=== PATIENT | male | born 1955 | race Two or more races ===

== ENCOUNTER 2017-12-28 15:40 | Inpatient (IN) | payer BC, MEDICAID ==
[~2017-12-28] VITALS: Ht 167.6 cm; Wt 94.8 kg
[2017-12-28 15:48] VITALS: BP 123/67
--- NOTE | 2017-12-28 16:00 | NUR ---
PT AMBULATED TO ER BED 11
[2017-12-28] MEDS ORDERED: IBUP-1842 PO (16:06)
[2017-12-28] MEDS ORDERED: TERA5CAP8 PO (16:06)
[2017-12-28] MEDS ORDERED: METF1000 PO (16:06)
[2017-12-28] MEDS ORDERED: GLIP10TE PO (16:06)
[2017-12-28] MEDS ORDERED: METF1TAB34 PO (16:06)
[2017-12-28] MEDS ORDERED: GABA400C PO (16:06)
[2017-12-28] MEDS ORDERED: HYDR25CA1 PO (16:06)
[2017-12-28] MEDS ORDERED: LISI-420 PO (16:06)
[2017-12-28] MEDS ORDERED: OMEP20TC12 PO (16:06)
--- NOTE | 2017-12-28 16:10 | NUR ---
PATIENT PRESENTS TO ED WITH COMPALINTS OF ABDOMINAL PAIN AND SHORTNESS OF BREATH X 4 DAYS. PATIENT STATES PAIN HAS BEEN INCREASING AND SOB IS WORSENING. ABDOMINAL GIRTH APPEARS TO BE INCREASING ACCORDING TO PATIENT. DENIES N/V/D; SKIN IS PINK/WARM/DRY; AAOX4 WITH EVEN AND STEADY GAIT; LUNGS CLEAR BL; HR EVEN AND REGULAR; PT DENIES ANY FEVER, CP, SOB, OR COUGH AT THIS TIME; PATIENT STATES PAIN OF 7/10 AT THIS TIME; VSS; PATIENT POSITIONED FOR COMFORT; HOB ELEVATED; BEDRAILS UP X1; BED DOWN. ER MD MADE AWARE OF PT STATUS.
[2017-12-28] MEDS ORDERED: NACL 0.9% 1,000 ML IV ONE (17:56)
[2017-12-28] MEDS ORDERED: MORPHINE SULFATE 2 MG/ML SYR IVP ONE (18:00)
[2017-12-28] MEDS ORDERED: ONDANSETRON 4 MG/2 ML VIAL IVP ONE (18:00)
[2017-12-28] MEDS ORDERED: metroNIDAZOLE 500 MG/NS PREMIX 100 ML IV ONE (18:00)
[2017-12-28 18:39] LABS: APPEARANCE,URINE SL CLOUDY (CLEAR); BILIRUBIN,URINE NEGATIVE (NEGATIVE); BLOOD, URINE 3+ (NEGATIVE); COLOR,URINE YELLOW (YELLOW); LEUKOCYTE ESTERASE ,URINE 2+ (NEGATIVE); NITRITE, URINE NEGATIVE (NEGATIVE); PH,URINE 5.5 (5.0-9.0); UGLUCOSE 1+ (NEGATIVE)
[2017-12-28 18:40] LABS: BASOPHILS % (AUTO) 0.5 % (0.0-2.0); EOSINOPHILS # (AUTO) 0.1 K/uL (0-0.4); EOSINOPHILS % (AUTO) 0.7 % (0.0-4.0); HEMATOCRIT 35.5 % (36-52); HEMOGLOBIN 11.8 g/dL (12.0-18.0); LYMPHOCYTES # (AUTO) 0.5 K/uL (2.0-11.5); LYMPHOCYTES % (AUTO) 5.6 % (20.5-51.1); MEAN CORPUSCULAR HEMOGLOBIN 31 pg (27-31); MEAN CORPUSCULAR HGB CONC 33 g/dL (33-37); MEAN CORPUSCULAR VOLUME 93.9 fL (80-94); MONOCYTES # (AUTO) 0.6 K/uL (0.8-1.0); MONOCYTES % (AUTO) 7.2 % (1.7-9.3); NEUTROPHILS # (AUTO) 7.2 K/uL (1.8-7.7); PLATELET COUNT (AUTO) 195 K/uL (140-450); RED BLOOD CELL COUNT(AUTO) 3.78 MIL/uL (4.20-6.10); WHITE BLOOD COUNT (AUTO) 8.4 K/uL (4.8-10.8)
[2017-12-28 18:43] LABS: ANION GAP 14.7 (8-16); CARBON DIOXIDE 23.4 mmol/L (21-32); CREATININE 2.2 mg/dL (0.7-1.3); POTASSIUM 5.1 mmol/L (3.5-5.1)
[2017-12-28 18:49] LABS: ALBUMIN 2.7 g/dL (3.4-5.0); TOTAL BILIRUBIN 1.7 mg/dL (0.0-1.0)
[2017-12-28 18:55] LABS: RBC,URINE 0-5 (RARE) /HPF (0-5); WBC,URINE 20-60 /HPF (0-5)
[2017-12-28 18:56] LABS: URINE AMORPHOUS URATE 1+ /HPF (None Seen)
--- NOTE | 2017-12-28 19:04 | NUR ---
PT TAKEN TO CT
--- NOTE | 2017-12-28 19:19 | NUR ---
REPORT RECEIVED FROM CASSANDRA CRAWLEY
[2017-12-28] MEDS ORDERED: cefTRIAXone 1,000 MG VIAL ONE (20:50)
[2017-12-28] MEDS ORDERED: DOCUSATE SODIUM 100 MG GELCAP PO PRN (21:00)
[2017-12-28] MEDS ORDERED: ACETAMINOPHEN 325 MG TAB PO PRN (21:00)
--- NOTE | 2017-12-28 21:17 | NUR ---
Pt transferred to Tele viaBED WITH ETIENNE BOWEN AND EMT KASEY .
--- NOTE | 2017-12-28 21:20 | NUR ---
PT ARRIVED AT UNIT VIA GURNEY, PT AMBULATED TO BED, THEN WENT TO RESTROOM TO URINATE, PT TOLERATED WELL, WENT BACK TO BED, RECEIVED REPORT FROM ER NURSE, PT STABLE, NO DISTRESS NOTED, IV TO R AC 20G RUNNING NS, PATENT, INTACT, INFUSING WELL, PT ON ROOM AIR, NO SOB, PT STATED HAVING PAIN /10, WILL MEDICATE, PT AAO X4, ORIENT PT TO ROOM, CALL LIGHT AND PHONE, INITIAL ASSESSMENT DONE, ALL SAFETY PRECAUTION MET, WILL CONTINUE TO MONITOR.
[2017-12-28 21:30] VITALS: BP 146/71
[2017-12-28 21:42] LABS: BARBITURATE, URINE NEG. ng/ml (NEG <=200); BENZODIAZEPINE, URINE NEG. ng/mL (NEG <=200); CANNABINOID, URINE NEG. ng/mL (NEG <=50); COCAINE, URINE NEG. ng/mL (NEG <=300); OPIATE, URINE NEG. ng/mL (NEG <=2000); PHENCYCLIDINE SCREEN,URINE NEG. ng/mL (NEG <=25)
[2017-12-28 21:44] LABS: CHOL/HDL RATIO 5.6 (1-4.5); FREE T4 (FREE THYROXINE) 1.36 ng/dL (0.76-1.46); MAGNESIUM 1.8 mg/dL (1.8-2.4); PHOSPHORUS 3.4 mg/dL (2.5-4.9); THYROID STIMULATING HORMONE 3.06 uIU/mL (0.34-3.74)
--- NOTE | 2017-12-28 21:52 | NUR ---
TYLENOL GIVEN PER MD ORDER, PT TEMP 102, WILL RECHECKED PT TEMP IN ONE HOUR
[2017-12-28] MEDS: NACL 0.9% 1,000 ML IV SCH (21:53)
[2017-12-28] MEDS ORDERED: PIOG15TA24 PO (22:02)
[2017-12-28] MEDS ORDERED: hydrOXYzine PAMOATE 25 MG CAP PO PRN (22:05)
[2017-12-28] MEDS: HYDROcodone/APAP 7.5/325 MG 1 TAB PO PRN (22:21)
--- NOTE | 2017-12-28 22:21 | NUR ---
PAIN MEDICATION GIVEN, PT TOLERATED WELL, NO DISTRESS NOTED, CALL LIGHT WITHIN REACH, WILL CONTINUE TO MONITOR.
--- NOTE | 2017-12-28 22:53 | NUR ---
RECHECKED PT TEMP, CURRENTLY AT 99.8, PT STABLE, NO DISTRESS NOTED, CALL LIGHT WITHIN REACH, WILL CONTINUE TO MONITOR.
[2017-12-29] VITALS: BP 120/60
--- NOTE | 2017-12-29 00:10 | NUR ---
CHECKED ON PT, PT SLEEPING, EASY TO AROUSE, V/S TAKEN, WNL, PT STATE PAIN TOLERABLE AT THIS MOMENT, NO DISTRESS NOTED, CALL LIGHT WITHIN REACH, WILL CONTINUE TO MONITOR.
[2017-12-29] MEDS ORDERED: DEXTROSE 50% 50 ML SYR IVP PRN (01:05)
--- NOTE | 2017-12-29 02:10 | NUR ---
CHECKED ON PT, PT SLEEPING, NO DISTRESS NOTED, CALL LIGHT WITHIN REACH, WILL CONTINUE TO MONITOR.
[2017-12-29 02:33] VITALS: BP 120/60
--- NOTE | 2017-12-29 03:37 | NUR ---
CHECKED ON PT, PT SLEEPING, NO DISTRESS NOTED, V/S WNL, CALL LIGHT WITHIN REACH, WILL CONTINUE TO MONITOR.
[2017-12-29 04:00] VITALS: BP 112/67
[2017-12-29] MEDS: NACL 0.9% 1,000 ML IV SCH ×2 (04:42→13:20)
--- NOTE | 2017-12-29 05:55 | NUR ---
CHECKED ON PT, PT STABLE, NO DISTRESS NOTED, STATED PAIN TOLERABLE AT 2/10, CALL LIGHT WITHIN REACH, WILL CONTINUE TO MONITOR.
[2017-12-29] MEDS: BLOOD GLUCOSE MONITORING 1 DEV DEV FS SCH ×4 (06:31→21:19)
[2017-12-29] MEDS: INSULIN LISPRO SLIDING SCALE 100 UNITS/ML VIAL SUBQ PRN ×2 (06:33→13:23)
--- NOTE | 2017-12-29 06:33 | NUR ---
CHECKED PT BLOOD SUGAR 168, INSULIN PER SLIDING SCALE 2UNITS GIVEN, PT TOLERATED WELL, GLUCOTROL ORDERED NOT AVAILABLE AT [facility], WILL ENDORSE TO DAY SHIFT NURSE. PT STABLE, NO DISTRESS NOTED, CALL LIGHT WITHIN REACH, WILL CONTINUE TO MONITOR.
[2017-12-29 07:13] LABS: BASOPHILS % (AUTO) 0.2 % (0.0-2.0); EOSINOPHILS % (AUTO) 0.4 % (0.0-4.0); HEMATOCRIT 32.6 % (36-52); HEMOGLOBIN 10.9 g/dL (12.0-18.0); LYMPHOCYTES # (AUTO) 0.4 K/uL (2.0-11.5); MEAN CORPUSCULAR HEMOGLOBIN 32 pg (27-31); MEAN CORPUSCULAR HGB CONC 34 g/dL (33-37); MEAN CORPUSCULAR VOLUME 94.6 fL (80-94); MONOCYTES # (AUTO) 0.7 K/uL (0.8-1.0); MONOCYTES % (AUTO) 6.3 % (1.7-9.3); NEUTROPHILS # (AUTO) 9.9 K/uL (1.8-7.7); NEUTROPHILS % (AUTO) 89.1 % (42.2-75.2); PLATELET COUNT (AUTO) 179 K/uL (140-450); RED BLOOD CELL COUNT(AUTO) 3.45 MIL/uL (4.20-6.10); RED CELL DISTRIBUTION WIDTH 15.2 % (11.6-13.7); WHITE BLOOD COUNT (AUTO) 11.2 K/uL (4.8-10.8)
[2017-12-29] MEDS ORDERED: glipiZIDE ER 5 MG TABER PO SCH (07:30)
--- NOTE | 2017-12-29 07:30 | NUR ---
ENDORSED PT TO DAY SHIFT NURSE TINY RN, PT STABLE, NO DISTRESS NOTED, CALL LIGHT WITHIN REACH.
[2017-12-29 07:34] LABS: ANION GAP 14.8 (8-16); CARBON DIOXIDE 20.4 mmol/L (21-32); CREATININE 2.2 mg/dL (0.7-1.3); POTASSIUM 5.2 mmol/L (3.5-5.1)
[2017-12-29 07:38] LABS: MAGNESIUM 1.5 mg/dL (1.8-2.4); PHOSPHORUS 3.1 mg/dL (2.5-4.9)
--- NOTE | 2017-12-29 08:00 | NUR ---
PATIETN AWAKE AND IS LAERT AND ORIENTED, NO C/O PAIN AT THIS TIME. PATIENT IS SAUDI ARABIAN SPEAKING BUT SPEAKS ENOUGH KOREAN TO COMMUNICATE WITH THIS FOOD COUNTER ATTENDANT
[2017-12-29 08:27] VITALS: BP 125/71
--- NOTE | 2017-12-29 08:43 | NUR ---
PATIENT HAS BEEN SCREENED AND CATEGORIZED HIGH NUTRITION RISK. PATIENT WILL BE SEEN WITHIN 1-2 DAYS OF ADMISSION. 12/29/17 12/30/[address]
[2017-12-29] MEDS: LACTOBACILLUS RHAMNOSUS GG 1 EACH CAP PO SCH (08:52)
[2017-12-29] MEDS: GABAPENTIN 100 MG CAP PO SCH ×3 (08:52→18:15)
[2017-12-29] MEDS: glipiZIDE 5 MG TAB PO SCH ×2 (09:08→17:45)
--- NOTE | 2017-12-29 12:00 | NUR ---
PATIENT RESTING QUIETLY, ADMITS TO HAVING SOME ABDOMINAL DISCOMFORT BUT NOT WANTING ANY PAIN MEDICATION
[2017-12-29 12:30] VITALS: BP 121/58
--- NOTE | 2017-12-29 13:59 | NUR ---
12/29/17 RD INITIAL ASSESSMENT COMPLETED PLEASE REFER TO NUTRITION ASSESSMENT UNDER CARE ACTIVITY FOR ESTIMATED NUTRITIONAL NEEDS. 1. CONTINUE CLEAR LIQUIDS MEDICALLY APPROPRIATE 2. RECOMMEND RENAL AND CCHO 60 GM DIET 3. PROVIDE NUTRITION EDUCATION ON RENAL AND DIABETES 4. RD TO FOLLOW-UP 3-5 DAYS, MODERATE RISK MINNA TAMAYO RD
--- NOTE | 2017-12-29 16:00 | NUR ---
PATIENT CONTINUES TO REST WELL. NO EVIDENCE OF DISTRESS NOTED.
--- NOTE | 2017-12-29 16:25 | NUR ---
RECEIVED A CALL THIS AM FROM GEETHA. SHE SAID TO FAX REVIEW TO [phone] PHONE [phone]
--- NOTE | 2017-12-29 16:29 | NUR ---
FAXED INITIAL REVIEW TO [phone] PHONE GEETHA [phone]
[2017-12-29 18:02] VITALS: BP 125/70
[2017-12-29] MEDS ORDERED: MAG SULF 2000 MG/WATER PREMIX 100 ML IV SCH (19:30)
--- NOTE | 2017-12-29 19:36 | NUR ---
REPORTED OFF TO MELODY GUIDO RN
--- NOTE | 2017-12-29 19:37 | NUR ---
RECEIVED PATIENT ON THE SIDE OF THE BED WITH FAMILY MEMBERS. PATIENT WAS COOPERATIVE AND DISCUSS THE PLAN OF CARE AND VERBALIZED UNDERSTANDING. CALL LIGHT WITHIN REACH.ALL NEEDS ATTENDED. WILL CONTINUE TO MONITOR.
[2017-12-29] MEDS: TERAZOSIN 5 MG CAP PO SCH (21:00)
[2017-12-29] MEDS: FINASTERIDE 5 MG TAB PO SCH (21:08)
--- NOTE | 2017-12-29 21:35 | NUR ---
SEEN PATIENT ASLEEP ON BED IN COMFORTABLE POSITION. CALL LIGHTS WITHIN REACH. BED IN LOW POSITION. WILL CONTINUE TO MONITOR.
--- NOTE | 2017-12-29 23:20 | NUR ---
SEEN PATIENT ASLEEP ON BED. CALL LIGHT WITHIN REACH. NO S/S OF DISTRESS NOTED. WILL CONTINUE TO MONITOR.
[2017-12-30] VITALS: BP 123/63
--- NOTE | 2017-12-30 01:35 | NUR ---
SEEN PATIENT ASLEEP ON BED BUT EASILY AROUSABLE. BED IN LOW POSITION .CALL LIGHT WITHIN REACH. NO S/S OF DISTRESS NOTED. WILL CONTINUE TO MONITOR.
[2017-12-30] MEDS: NACL 0.9% 1,000 ML IV SCH (02:04)
--- NOTE | 2017-12-30 03:37 | NUR ---
SEEN PATIENT ASLEEP ON BED. CALL LIGHT WITHIN REACH. BED IN LOW POSITION. WILL CONTINUE TO MONITOR.
[2017-12-30 04:00] VITALS: BP 113/61
--- NOTE | 2017-12-30 05:16 | NUR ---
SEEN PATIENT ASLEEP ON BED IN COMFORTABLE POSITION. BED IN LOW POSITION. CALL LIGHT WITHIN REACH. NO S/S OF DISTRESS NOTED AT THIS.
[2017-12-30 06:32] LABS: BASOPHILS % (AUTO) 0.4 % (0.0-2.0); EOSINOPHILS # (AUTO) 0.1 K/uL (0-0.4); EOSINOPHILS % (AUTO) 1.1 % (0.0-4.0); HEMATOCRIT 29.7 % (36-52); HEMOGLOBIN 10.1 g/dL (12.0-18.0); LYMPHOCYTES # (AUTO) 0.5 K/uL (2.0-11.5); LYMPHOCYTES % (AUTO) 7.3 % (20.5-51.1); MEAN CORPUSCULAR HEMOGLOBIN 32 pg (27-31); MEAN CORPUSCULAR HGB CONC 34 g/dL (33-37); MEAN CORPUSCULAR VOLUME 94.4 fL (80-94); MONOCYTES # (AUTO) 0.7 K/uL (0.8-1.0); MONOCYTES % (AUTO) 9.3 % (1.7-9.3); NEUTROPHILS # (AUTO) 6.1 K/uL (1.8-7.7); NEUTROPHILS % (AUTO) 81.9 % (42.2-75.2); PLATELET COUNT (AUTO) 148 K/uL (140-450); RED BLOOD CELL COUNT(AUTO) 3.15 MIL/uL (4.20-6.10); RED CELL DISTRIBUTION WIDTH 14.7 % (11.6-13.7); WHITE BLOOD COUNT (AUTO) 7.4 K/uL (4.8-10.8)
[2017-12-30 06:32] LABS: ANION GAP 12.6 (8-16); CARBON DIOXIDE 21.3 mmol/L (21-32); POTASSIUM 4.9 mmol/L (3.5-5.1)
[2017-12-30] MEDS: BLOOD GLUCOSE MONITORING 1 DEV DEV FS SCH ×4 (06:33→20:34)
[2017-12-30] MEDS: glipiZIDE 5 MG TAB PO SCH ×2 (06:34→17:04)
[2017-12-30 06:42] LABS: MAGNESIUM 1.8 mg/dL (1.8-2.4); PHOSPHORUS 3.5 mg/dL (2.5-4.9)
--- NOTE | 2017-12-30 07:20 | NUR ---
ENDORSEMENT GIVEN TO AM SHIFT FOR CONTINUITY IF CARE.CALL LIGHTS WITHIN REACH. PATIENT IN STABLE CONDITION.
--- NOTE | 2017-12-30 07:21 | NUR ---
RECEIVED REPORT FROM SOFTWARE SUPPORT ENGINEER NURSE AT BEDSIDE. PT IS A/O X4. IV IN L AC 20G WITH NS AT 100ML/HR. SKIN IS INTACT. NO SIGNS OF DISTRESS. CALL LIGHT WITHIN REACH . UPDATED BOARD. WILL CONTINUE TO MONITOR.
[2017-12-30 08:00] VITALS: BP 109/60
[2017-12-30 08:16] LABS: T4 (THYROXINE) 7.1 ug/dL (4.5-12.0)
[2017-12-30] MEDS: GABAPENTIN 100 MG CAP PO SCH ×3 (09:14→17:04)
[2017-12-30] MEDS: LACTOBACILLUS RHAMNOSUS GG 1 EACH CAP PO SCH (09:14)
--- NOTE | 2017-12-30 09:22 | NUR ---
ADMINISTERED MORNING MEDS TO PT. PT TOLERATED WELL. NO SIGNS OF DISTRESS. PT DOES NOT NEED ANYTHING ELSE AT THIS TIME. WILL CONTINUE TO MONITOR.
[2017-12-30] MEDS: HYDROcodone/APAP 7.5/325 MG 1 TAB PO PRN (10:00)
--- NOTE | 2017-12-30 10:02 | NUR ---
ADMINISTERED PAIN MEDICATION TO PT D/T REPORTED PAIN OF 6. PT TOLERATED WELL. WILL REEVALUATE PAIN LEVEL IN 1 HR.
[2017-12-30] MEDS ORDERED: FUROSEMIDE 40 MG/4 ML VIAL IVP SCH (10:15)
--- NOTE | 2017-12-30 11:50 | NUR ---
PT IS UP AMBULATING THE HALLWAY. NO SIGNS OF DISTRESS.
[2017-12-30 12:00] VITALS: BP 113/65
[2017-12-30] MEDS: LACTULOSE 20 GM/30 ML UDC PO SCH ×3 (12:45→20:17)
[2017-12-30] MEDS: SENNA 8.6 MG TAB PO SCH ×2 (12:45→17:05)
--- NOTE | 2017-12-30 12:49 | NUR ---
ADMINISTERED AFTERNOON MEDS. PT TOLERATED WELL. PT SIGNED CONSENT FOR THE PROCEDURES SCHEDULED TOMORROW. FAMILY IS AT BEDSIDE VISITING. WILL CONTINUE TO MONITOR.
--- NOTE | 2017-12-30 14:30 | NUR ---
PT IN BED RESTING COMFORTABLY, WATCHING TV. NO SIGNS OF DISTRESS. WILL CONTINUE TO MONITOR.
[2017-12-30] MEDS ORDERED: BOWEL EVACUANT DRINK 4,000 ML PDS PO SCH (15:00)
[2017-12-30 16:00] VITALS: BP 112/68
--- NOTE | 2017-12-30 17:10 | NUR ---
ADMINISTERED EVENING MEDS TO PT. PT TOLERATED WELL. PT HAS COMPLETED DRINKING THE BOWEL PREP DRINK. WILL CONTINUE TO MONITOR.
--- NOTE | 2017-12-30 19:10 | NUR ---
ENDORSED PT TO HOTEL MANAGER NURSE FOR CONTINUITY OF CARE. PT IN STABLE CONDITION.
--- NOTE | 2017-12-30 19:11 | NUR ---
REPORT RECEIVED FROM AM NURSE. PT IN STABLE CONDITION. INTRODUCED SELF TO PT AND FAMILY. SKIN INTACT. IV SITE PATENT AND INTACT, SL. PT VERBALIZED UNDERSTANDING OF PLAN OF CARE. PT NPO AFTER MIDNIGHT FOR PROCEDURE TOMORROW. PT AMBULATORY. BED LOCKED IN LOW POSITION. CALL REYNOSO WITHIN REACH. WILL CONTINUE TO MONITOR.
[2017-12-30 20:00] VITALS: BP 124/67
[2017-12-30] MEDS ORDERED: MAGNESIUM CITRATE 300 ML BTL PO SCH (20:00)
[2017-12-30] MEDS: FINASTERIDE 5 MG TAB PO SCH (20:16)
[2017-12-30] MEDS ORDERED: ALBUMIN HUMAN 25% 100 ML IV ONE (21:00)
[2017-12-30] MEDS: TERAZOSIN 5 MG CAP PO SCH (21:00)
--- NOTE | 2017-12-30 21:00 | NUR ---
PM MEDS GIVEN. PT TOLERATED WELL. WILL CONTINUE TO MONITOR.
--- NOTE | 2017-12-30 23:00 | NUR ---
PT ASLEEP BUT AROUSABLE. NOT IN ANY ACUTE DISTRESS. WILL CONTINUE TO MONITOR.
[2017-12-31] VITALS: BP 104/57
--- NOTE | 2017-12-31 02:00 | NUR ---
PT TURNING IN BED. PT NOT IN ANY ACUTE DISTRESS. ASKED HOW HE WAS DOING, PT STATED HE IS OK.
[2017-12-31 04:00] VITALS: BP 105/59
--- NOTE | 2017-12-31 05:00 | NUR ---
PT ASLEEP IN BED. CHEST EXPANSION IS VISIBLE. PT NOT IN ANY ACUTE DISTRESS. WILL CONTINUE TO MONITOR.
[2017-12-31] MEDS: BLOOD GLUCOSE MONITORING 1 DEV DEV FS SCH ×3 (06:27→16:33)
[2017-12-31] MEDS: glipiZIDE 5 MG TAB PO SCH ×2 (06:30→16:35)
[2017-12-31 06:50] LABS: BASOPHILS % (AUTO) 0.6 % (0.0-2.0); EOSINOPHILS # (AUTO) 0.1 K/uL (0-0.4); EOSINOPHILS % (AUTO) 1.5 % (0.0-4.0); HEMATOCRIT 30.3 % (36-52); HEMOGLOBIN 10.2 g/dL (12.0-18.0); LYMPHOCYTES # (AUTO) 0.5 K/uL (2.0-11.5); MEAN CORPUSCULAR HEMOGLOBIN 32 pg (27-31); MEAN CORPUSCULAR HGB CONC 34 g/dL (33-37); MONOCYTES # (AUTO) 0.4 K/uL (0.8-1.0); MONOCYTES % (AUTO) 8.2 % (1.7-9.3); NEUTROPHILS # (AUTO) 4.3 K/uL (1.8-7.7); PLATELET COUNT (AUTO) 155 K/uL (140-450); RED BLOOD CELL COUNT(AUTO) 3.22 MIL/uL (4.20-6.10); RED CELL DISTRIBUTION WIDTH 14.8 % (11.6-13.7); WHITE BLOOD COUNT (AUTO) 5.3 K/uL (4.8-10.8)
[2017-12-31 07:01] LABS: ANION GAP 13.2 (8-16); CARBON DIOXIDE 21.5 mmol/L (21-32); CREATININE 1.9 mg/dL (0.7-1.3); POTASSIUM 4.7 mmol/L (3.5-5.1)
--- NOTE | 2017-12-31 07:05 | NUR ---
REPORT GIVEN TO AM NURSE. PT IN STABLE CONDITION.
[2017-12-31 07:12] LABS: MAGNESIUM 1.6 mg/dL (1.8-2.4); PHOSPHORUS 4.2 mg/dL (2.5-4.9)
--- NOTE | 2017-12-31 07:15 | NUR ---
RECEIVED REPORT FROM PER ASSESSMENT NURSE NURSE ABOUT THE PT. PT IS ASLEEP LYING ON THE BED WITH AN IV LINE AT RT AC G. 20 IN SALINE LOCK, INTACT. NO IVF RUNNING AT THIS TIME. SIDE RAILS ARE UP AND CALL LIGHT WITHIN REACH. WILL CONTINUE TO MONITOR.
[2017-12-31 07:40] LABS: NEUTROPHILS % (AUTO) 80.8 % (42.2-75.2)
[2017-12-31 07:41] LABS: LYMPHOCYTES % (AUTO) 8.9 % (20.5-51.1)
[2017-12-31 08:00] VITALS: BP 122/68
--- NOTE | 2017-12-31 08:15 | NUR ---
PT IS AWAKE AND ON A SITTING POSITION ON THE BED, VITAL SIGNS TAKE AND IS STABLE. DR. CAMPBELL CALLED OVER THE PHONE AND ASKED REGARDING THE PT'S STATUS, MD INFORMED THAT PROCEDURE WILL BE DONE TODAY. SIDE RAILS ARE UP AND CALL LIGHT WITHIN REACH, NO SIGN OF DISTRESS NOTED AND WILL CONTINUE TO MONITOR.
[2017-12-31] MEDS: SENNA 8.6 MG TAB PO SCH (08:19)
[2017-12-31] MEDS: GABAPENTIN 100 MG CAP PO SCH ×3 (08:20→16:37)
[2017-12-31] MEDS: LACTOBACILLUS RHAMNOSUS GG 1 EACH CAP PO SCH (08:20)
[2017-12-31] MEDS: LACTULOSE 20 GM/30 ML UDC PO SCH (08:20)
[2017-12-31] MEDS ORDERED: MIDAZOLAM 2 MG/2 ML VIAL ONE (08:49)
[2017-12-31] MEDS ORDERED: diphenhydrAMINE 50 MG/ML VIAL ONE (08:49)
[2017-12-31] MEDS ORDERED: fentaNYL 0.05 MG/ML VIAL ONE (08:49)
--- NOTE | 2017-12-31 09:00 | NUR ---
PT IS AWAKE AND OR NURSES CAME TO GET THE PT AND BRING TO OR FOR THE EGD AND COLONOSCOPY. NO SIGN OF DISTRESS NOTED AND PT IS STABLE AT HIS TIME.
[2017-12-31] MEDS ORDERED: fentaNYL 0.05 MG/ML VIAL IVP ONE (09:45)
[2017-12-31] MEDS ORDERED: MIDAZOLAM 2 MG/2 ML VIAL IVP ONE (09:45)
--- NOTE | 2017-12-31 10:00 | NUR ---
PT CAME BACK TO THE ROOM VIA GURNEY WITH THE OR NURSES, VITAL SIGNS TAKEN AND IS STABLE. NO SIGN OF DISTRESS NOTED AND WILL CONTINUE TO MONITOR.
--- NOTE | 2017-12-31 10:05 | NUR ---
PT JUST CAME BACK FROM EGD AND COLONOSCOPY, PT HAS GASTRITIS AND DIVERTICULOSIS PER EXAMINATION. WILL MONITOR.
--- NOTE | 2017-12-31 10:10 | NUR ---
ASSISTED PT TO THE BATHROOM, PT VERBALIZED WANTING TO POOP. ASSISTED BACK TO BED AND MADE COMFORTABLE. SIDE RAILS ARE UP AND CALL LIGHT WITHIN REACH. WILL CONTINUE TO MONITOR.
[2017-12-31] MEDS ORDERED: LACTULOSE 20 GM/30 ML UDC PO SCH (10:30)
[2017-12-31] MEDS ORDERED: FUROSEMIDE 20 MG TAB PO SCH (10:30)
[2017-12-31] MEDS ORDERED: oxyCODONE/APAP 5/325 MG 1 TAB TAB PO PRN (11:00)
[2017-12-31 12:00] VITALS: BP 120/81
[2017-12-31 16:00] VITALS: BP 121/77
--- NOTE | 2017-12-31 16:02 | NUR ---
ACKNOWLEDGED A DISCHARGE ORDER PLACED BY DR. SYLVIA HASSAN FOR THE PT. WILL FACILITATE DISCHARGE PROCESS.
[2017-12-31] MEDS ORDERED: FINA5TAB5 PO (16:09)
[2017-12-31] MEDS ORDERED: GABA-636 PO (16:09)
[2017-12-31] MEDS ORDERED: SPIR50TA PO (16:09)
[2017-12-31] MEDS ORDERED: LACT10SO11 PO (16:09)
[2017-12-31] MEDS ORDERED: OMEP20TC12 PO ×2 (16:09→16:11)
[2017-12-31] MEDS ORDERED: FURO20TA8 PO (16:09)
[2017-12-31] MEDS ORDERED: GLIP5TAB13 PO (16:09)
[2017-12-31] MEDS ORDERED: TERA5CAP8 PO (16:09)
--- NOTE | 2017-12-31 16:20 | NUR ---
PT IS AWAKE AND SEATED ON THE BED, VITAL SIGNS TAKEN AND IS STABLE. NO SIGN OF DISTRESS NOTED. WILL MONITOR.
[2017-12-31] MEDS: INSULIN LISPRO SLIDING SCALE 100 UNITS/ML VIAL SUBQ PRN (16:33)
--- NOTE | 2017-12-31 16:40 | NUR ---
PT IS AWAKE AND SEATED ON THE BED, BLOOD GLUCOSE CHECK DONE AND RESULT IS 213, INSULIN GIVEN AT 4UNITS IN THE UPPER RT ARM. PT TOLERATED IT AND NO SIGN OF DISTRESS NOTED.
--- NOTE | 2017-12-31 17:40 | NUR ---
DISCHARGED PT VIA WHEELCHAIR WITH THE ACCOMPANIED BY THE DAUGHTER AND . IV LINE AND ARM BAND REMOVED. DISCHARGE INSTRUCTIONS GIVEN. PT IS STABLE AT THIS TIME.
[2018-01-01] MEDS ORDERED: LACTULOSE 20 GM/30 ML UDC PO SCH (09:00)
[2018-01-01] MEDS ORDERED: SPIRONOLACTONE 50 MG TAB PO SCH (09:00)
[2018-01-01] MEDS ORDERED: FUROSEMIDE 20 MG TAB PO SCH (09:00)
== END 2017-12-31 17:40 | disposition home or self-care (01) | DRG 720 ==
LOC: MED 15:40 → MTU 20:59
PROVIDERS: ADMIT General Practice; ATTEND General Practice
PROC: 0DB68ZX Excision of Stomach, Via Natural or Artificial Opening Endoscopic, Diagnostic (ICD-10-PCS; principal; 2017-12-31 09:00)
PROC: 0DJD8ZZ Inspection of Lower Intestinal Tract, Via Natural or Artificial Opening Endoscopic (ICD-10-PCS; 2017-12-31 09:00)
DX: A41.9 Sepsis, unspecified organism (principal); N17.0 Acute kidney failure with tubular necrosis; E43 Unspecified severe protein-calorie malnutrition; D68.59 Other primary thrombophilia; E11.22 Type 2 diabetes mellitus with diabetic chronic kidney disease; I85.10 Secondary esophageal varices without bleeding; E11.40 Type 2 diabetes mellitus with diabetic neuropathy, unspecified; E11.65 Type 2 diabetes mellitus with hyperglycemia; K70.31 Alcoholic cirrhosis of liver with ascites; E87.1 Hypo-osmolality and hyponatremia; K85.20 Alcohol induced acute pancreatitis without necrosis or infection; N39.0 Urinary tract infection, site not specified; K21.9 Gastro-esophageal reflux disease without esophagitis; F10.10 Alcohol abuse, uncomplicated; K80.20 Calculus of gallbladder without cholecystitis without obstruction; R31.9 Hematuria, unspecified; N40.0 Benign prostatic hyperplasia without lower urinary tract symptoms; N50.811 Right testicular pain; E66.9 Obesity, unspecified; D64.9 Anemia, unspecified; K57.90 Diverticulosis of intestine, part unspecified, without perforation or abscess without bleeding; N18.9 Chronic kidney disease, unspecified; I12.9 Hypertensive chronic kidney disease with stage 1 through stage 4 chronic kidney disease, or unspecified chronic kidney disease; M53.3 Sacrococcygeal disorders, not elsewhere classified; E86.1 Hypovolemia; K64.8 Other hemorrhoids; R16.2 Hepatomegaly with splenomegaly, not elsewhere classified; Z79.84 Long term (current) use of oral hypoglycemic drugs; Z79.899 Other long term (current) drug therapy; Z68.33 Body mass index [BMI] 33.0-33.9, adult
CPT/HCPCS: 36415; 71045; 76705; 76770; 76870; 80048; 80053; 80305; 81001; 82150; 82948; 83036; 83605; 83690; 83735; 83880; 84100; 84436; 84439; 84443; 84479; 84484; 85025; 85610; 85730; 86677; 87040; 87081; 87086; 87186; 93005; 93925; 93970; 96374; 96375; 99285; J0696; J1200; J1815; J1940; J2250; J2270; J2405; J3010; J3475; J3490; J7030; J7060; P9046; Q0092

== ENCOUNTER 2019-11-21 13:30 | Inpatient (IN) | payer OTHER, MEDICAID, SELFPAY ==
[~2019-11-21] VITALS: Ht 162.6 cm; Wt 92.1 kg
[~2019-11-21 13:30] MED LIST: FINA5TAB5 PO; FURO20TA8 PO; GABA-636 PO; GLIP5TAB13 PO; LACT10SO11 PO; OMEP20TC12 PO; SPIR50TA PO; TERA5CAP8 PO
[2019-11-21 13:47] VITALS: BP 150/75
--- NOTE | 2019-11-21 13:51 | NUR ---
Patient ambulated to bed 10. RN evaluating patient at bedside.
[2019-11-21] MEDS ORDERED: GLIP10TA3 PO (13:54)
[2019-11-21] MEDS ORDERED: BENA20TA PO (13:54)
[2019-11-21] MEDS ORDERED: METF1000 PO (13:54)
[2019-11-21] MEDS ORDERED: PROP20TA29 PO (13:54)
[2019-11-21] MEDS ORDERED: PIOG15TA48 PO (13:54)
[2019-11-21] MEDS ORDERED: NACL 0.9% 1,000 ML IV SCH (13:55)
[2019-11-21] MEDS ORDERED: KETOROLAC 15 MG/ML VIAL IVP ONE (13:55)
[2019-11-21] MEDS ORDERED: ONDANSETRON 4 MG/2 ML VIAL IVP ONE (13:55)
--- NOTE | 2019-11-21 14:00 | NUR ---
64 y/o m c/c upper abdominal pain, 04/02, burning, radiating to back x 1 day. per pt sudden pain, whcih has not had before, believes its due to the current cancer in liver. denies trauma. pt normal bm, and urination. pt nka. hx ca liver, tumor liver, dm. pt currently in tx for liver. rx see list. denies n/v/d. side rail x1.
--- NOTE | 2019-11-21 14:34 | NUR ---
DAUGHTER- RICHY [phone]
[2019-11-21] MEDS ORDERED: MORPHINE SULFATE 4 MG/ML SYR IVP ONE (14:35)
[2019-11-21 14:36] LABS: LYMPHOCYTES # (AUTO) 0.2 K/uL (2.0-11.5); MEAN CORPUSCULAR HEMOGLOBIN 30 pg (27-31); MEAN CORPUSCULAR HGB CONC 34 g/dL (33-37); MONOCYTES # (AUTO) 0.3 K/uL (0.8-1.0); NEUTROPHILS # (AUTO) 4.1 K/uL (1.8-7.7)
--- NOTE | 2019-11-21 14:36 | NUR ---
blood obtained ; given to lab
--- NOTE | 2019-11-21 14:37 | NUR ---
pt resting in bed, side rail x1
--- NOTE | 2019-11-21 14:44 | NUR ---
us at bedside
--- NOTE | 2019-11-21 15:02 | NUR ---
PER ACCOUNTANT TAX LITTLE , BLOOD WILL BE REDRAWN , DISREGARD CURRENT RESULTS
--- NOTE | 2019-11-21 15:03 | NUR ---
LAB AT BEDSIDE
--- NOTE | 2019-11-21 15:06 | NUR ---
DR WHITE NOTIFIED OF LAB RESULTS ; REDRAWN
[2019-11-21 15:20] LABS: ALBUMIN 3.3 g/dL (3.4-5.0); TOTAL BILIRUBIN 0.8 mg/dL (0.0-1.0)
[2019-11-21 15:20] LABS: BASOPHILS % (AUTO) 0.7 % (0.0-2.0); EOSINOPHILS % (AUTO) 0.2 % (0.0-4.0); HEMATOCRIT 32.1 % (36-52); HEMOGLOBIN 10.9 g/dL (12.0-18.0); LYMPHOCYTES % (AUTO) 3.5 % (20.5-51.1); MEAN CORPUSCULAR VOLUME 88.5 fL (80-94); MONOCYTES % (AUTO) 7.4 % (1.7-9.3); NEUTROPHILS % (AUTO) 88.2 % (42.2-75.2); PLATELET COUNT (AUTO) 58 K/uL (140-450); RED BLOOD CELL COUNT(AUTO) 3.63 MIL/uL (4.20-6.10); RED CELL DISTRIBUTION WIDTH 16.2 % (11.6-13.7); WHITE BLOOD COUNT (AUTO) 4.6 K/uL (4.8-10.8)
[2019-11-21] MEDS ORDERED: cefTRIAXone 1,000 MG VIAL ONE (15:55)
[2019-11-21] MEDS ORDERED: DEXT 5% /NACL 0.9% 1,000 ML IV SCH (16:41)
[2019-11-21] MEDS ORDERED: ONDANSETRON 4 MG/2 ML VIAL IM/IVP PRN (16:45)
[2019-11-21] MEDS ORDERED: MORPHINE SULFATE 2 MG/ML SYR IVP PRN (16:45)
[2019-11-21] MEDS ORDERED: LORazepam 2 MG/ML VIAL IM/IVP PRN (16:45)
[2019-11-21] MEDS ORDERED: DOCUSATE SODIUM 100 MG GELCAP PO PRN (16:45)
--- NOTE | 2019-11-21 16:52 | NUR ---
PT RESTING IN BED, SIDE RAIL X1
[2019-11-21 17:06] LABS: APPEARANCE,URINE HAZY (CLEAR); BILIRUBIN,URINE NEGATIVE (NEGATIVE); BLOOD, URINE NEGATIVE (NEGATIVE); COLOR,URINE YELLOW (YELLOW); LEUKOCYTE ESTERASE ,URINE 1+ (NEGATIVE); NITRITE, URINE NEGATIVE (NEGATIVE); PH,URINE 5.5 (5.0-9.0); UGLUCOSE 3+ (NEGATIVE)
[2019-11-21 17:32] LABS: BARBITURATE, URINE NEGATIVE ng/ml (NEG <=200); BENZODIAZEPINE, URINE NEGATIVE ng/mL (NEG <=200); CANNABINOID, URINE NEGATIVE ng/mL (NEG <=50); COCAINE, URINE NEGATIVE ng/mL (NEG <=300); OPIATE, URINE POSITIVE ng/mL (NEG <=2000); PHENCYCLIDINE SCREEN,URINE NEGATIVE ng/mL (NEG <=25)
[2019-11-21 17:36] LABS: PROTHROMBIN TIME 12.1 secs (10.8-13.4)
[2019-11-21] MEDS ORDERED: DEXTROSE 50% 50 ML SYR IVP PRN (17:40)
[2019-11-21] MEDS ORDERED: GLUCAGON 1 MG VIAL IVP PRN (17:40)
--- NOTE | 2019-11-21 17:55 | NUR ---
PATIENT ARRIVED VIA GURNEY. RECEIVED REPORT FROM ER NURSE. PATIENT IS ALERT AND ORIENTED X4. URDU SPEAKING. PLANS OF CARE DISCUSSED. VS STABLE. WILL ENDORSE TO NIGHT NURSE FOR CONTINUITY OF CARE.
[2019-11-21 17:57] LABS: CHOL/HDL RATIO 3.7 (1-4.5); FREE T4 (FREE THYROXINE) 1.17 ng/dL (0.76-1.46); MAGNESIUM 1.4 mg/dL (1.8-2.4); PHOSPHORUS 2.7 mg/dL (2.5-4.9); THYROID STIMULATING HORMONE 0.77 uIU/mL (0.34-3.74)
[2019-11-21 18:00] VITALS: BP 97/54
--- NOTE | 2019-11-21 18:00 | NUR ---
Patient will be admitted to care of [facility]. Admited to MS. Will go to room 112B. Belongings list completed. Report to DEANN CRAWLEY.
[2019-11-21] MEDS ORDERED: MAGNESIUM CITRATE 300 ML BTL PO ONE (18:05)
[2019-11-21 18:07] LABS: RBC,URINE 0-5 /HPF (0-5)
[2019-11-21] MEDS ORDERED: hydrALAZINE 20 MG/ML VIAL IVP PRN (18:25)
[2019-11-21] MEDS ORDERED: BOWEL EVACUANT DRINK 4,000 ML PDS PO SCH (18:30)
[2019-11-21] MEDS ORDERED: SENNA 8.6 MG TAB PO SCH (18:30)
[2019-11-21 20:00] VITALS: BP 142/67
--- NOTE | 2019-11-21 20:00 | NUR ---
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 ORIENTED TO HIS ENVIRONMENT,BED ,BED CONTROL & CALL LIGHT;WITHIN REACH.
[2019-11-21] MEDS: BLOOD GLUCOSE MONITORING 1 DEV DEV FS SCH (20:59)
[2019-11-21] MEDS ORDERED: FAMOTIDINE 20 MG/2 ML VIAL IV SCH (21:00)
[2019-11-21] MEDS ORDERED: PROPRANOLOL 20 MG TAB PO SCH (21:00)
--- NOTE | 2019-11-21 21:00 | NUR ---
FINGER STICK BLD SUGAR 135.DUE MEDS ADM.IVF D5NS @ 50ML/HR STARTE INFUSING WELL.
[2019-11-21] MEDS ORDERED: MAG SULF 2000 MG/WATER PREMIX 50 ML IV SCH (22:45)
--- NOTE | 2019-11-21 23:14 | NUR ---
MAGNESIUM SO4 2GM STARTED @25 ML/HR.
[2019-11-21] MEDS: ACETAMINOPHEN 325 MG TAB PO PRN (23:44)
--- NOTE | 2019-11-21 23:44 | NUR ---
C/O H/A SCALE 510.TYLENOL 650 MG PO ADM.
[2019-11-22] VITALS: BP 131/68
--- NOTE | 2019-11-22 | NUR ---
KEPT NPO FOR EGD & COLONOSCOPY IN AM;VERBALIZED UNDERSTANDING OF THE INSTRUCTION GIVEN.KEPT USING THE RESTROOM FOR BM.
--- NOTE | 2019-11-22 00:44 | NUR ---
PER PT H/A WITH RELIEF POST TYLENOL.
--- NOTE | 2019-11-22 01:00 | NUR ---
IV INSERTED ON HIS RIGHT FA X1 WITH ANGIO # 20.IVF INFUSING WELL.
--- NOTE | 2019-11-22 03:00 | NUR ---
RESTING COMFORTABLY IN NO ACUTE DISTRESS.IVF INFUSING WELL.
[2019-11-22 04:00] VITALS: BP 112/57
--- NOTE | 2019-11-22 05:00 | NUR ---
PER PT HAD X6 WATERY STOOL,BROWN IN COLOR.
--- NOTE | 2019-11-22 06:45 | NUR ---
ENDORSED IN NO ACUTE DISTRESS.IVF INFUSING WELL.NO S/S OF HYPO/HYPERGLYCEMIA NOTED.SAFETY MAINTAINED.
[2019-11-22] MEDS: BLOOD GLUCOSE MONITORING 1 DEV DEV FS SCH ×4 (07:06→20:20)
--- NOTE | 2019-11-22 07:15 | NUR ---
RECEIVED REPORT FROM SUGAR GRINDER NURSE. PT IS CURRENTLY SLEEPING WITH NO SIGNS OF DISTRESS NOTED. SKIN IS INTACT WITH IV PATENT ASYMPTOMATIC AND INFUSING PER ORDER. RESPIRATIONS EVEN AND UNLABORED CLEAR THROUGHOUT ON ROOM AIR. BED IS IN LOW SEMI-FOWLERS POSITION WITH SAFETY MEASURES IN PLACE, CALL LIGHT WITHIN REACH.
[2019-11-22] MEDS ORDERED: glipiZIDE 10 MG TAB PO SCH ×2 (07:30→16:30)
[2019-11-22 07:53] LABS: BASOPHILS % (AUTO) 0.5 % (0.0-2.0); EOSINOPHILS # (AUTO) 0.1 K/uL (0-0.4); EOSINOPHILS % (AUTO) 1.5 % (0.0-4.0); HEMATOCRIT 35.1 % (36-52); LYMPHOCYTES # (AUTO) 0.2 K/uL (2.0-11.5); LYMPHOCYTES % (AUTO) 2.9 % (20.5-51.1); MEAN CORPUSCULAR HEMOGLOBIN 32 pg (27-31); MEAN CORPUSCULAR HGB CONC 34 g/dL (33-37); MONOCYTES # (AUTO) 0.4 K/uL (0.8-1.0); MONOCYTES % (AUTO) 5.1 % (1.7-9.3); NEUTROPHILS # (AUTO) 7.1 K/uL (1.8-7.7); PLATELET COUNT (AUTO) 56 K/uL (140-450); RED BLOOD CELL COUNT(AUTO) 3.82 MIL/uL (4.20-6.10); RED CELL DISTRIBUTION WIDTH 16.1 % (11.6-13.7); WHITE BLOOD COUNT (AUTO) 7.9 K/uL (4.8-10.8)
[2019-11-22] MEDS ORDERED: metFORMIN 500 MG TAB PO SCH (08:00)
[2019-11-22 08:09] LABS: MAGNESIUM 1.8 mg/dL (1.8-2.4); PHOSPHORUS 3.1 mg/dL (2.5-4.9)
[2019-11-22 08:11] LABS: ANION GAP 13.6 (8-16); CARBON DIOXIDE 25.4 mmol/L (21-32)
[2019-11-22] MEDS ORDERED: BENAZEPRIL 10 MG TAB PO SCH (09:00)
[2019-11-22] MEDS ORDERED: LACTOBACILLUS RHAMNOSUS GG 1 EACH CAP PO SCH (09:00)
--- NOTE | 2019-11-22 09:12 | NUR ---
PATIENT HAS BEEN SCREENED AND CATEGORIZED MODERATE NUTRITION RISK. PATIENT WILL BE SEEN WITHIN 3-5 DAYS OF ADMISSION. 11/24/19 11/26/[address]
[2019-11-22] MEDS ORDERED: MIDAZOLAM 2 MG/2 ML VIAL ONE (09:24)
[2019-11-22] MEDS ORDERED: fentaNYL 0.05 MG/ML VIAL ONE (09:24)
--- NOTE | 2019-11-22 09:46 | NUR ---
PT WAS TAKEN FOR A COLONOSCOPY AT THIS TIME.
[2019-11-22] MEDS ORDERED: LACTULOSE 20 GM/30 ML UDC PO SCH (10:40)
--- NOTE | 2019-11-22 10:50 | NUR ---
PT RETURNED FROM EGD. PT IS CURRENTLY LETHARGIC, VITAL SIGNS ARE WITHIN NORMAL RANGE. SAFETY MEASURES IN PLACE AND WILL CONTINUE TO MONITOR.
[2019-11-22] MEDS ORDERED: diphenhydrAMINE 50 MG/ML VIAL ONE (10:51)
[2019-11-22 11:30] VITALS: BP 123/67
--- NOTE | 2019-11-22 11:46 | NUR ---
DC PLANNIN YRS OLD MALE PATIENT WAS ADMITTED FROM HOME WITH A DX OF BILIARY COLIC, ABDOMINAL PAIN AND DEHYDRATION. PT HAS A HX OF HTN, DM CIRRHOSIS AND LIVER CA . CT ABDOMEN SHOWED CIRRHOSIS WITH SPLENOMEGALY TRACE ASCITES. STARTED ON IVF, GI CONSULTED AND DR CAMPBELL PERFORMED EGD ,RESULTED ESOPHAGEAL VARICES ,ANTRAL ULCERX2 AND SMALL POLYP REMOVED AND AWAIT FOR PATHOLOGY REPORT AND TREAT APPROPRIATELY. AWAITING FOR ECONOMICS DEPARTMENT CHAIR DR FREDI HUTTON FOR FABY. DC PLAN TO GO HOME PER RECOMMENDATIONS CM TO FOLLOW . Addendum: 11/25/19 at 1121 by Lona Park CM CLINICALS SENT TO [facility] EMERGENCY COMMUNICATIONS OPERATOR NATANAEL AT [phone] Addendum: 11/25/19 at 1154 by Lona Park CM RECEIVED A CALL FROM NATANAEL OF [facility] TRANSPLANT REQUESTING TO HAVE CMP AND INR DRAWN ON A DAILY BASIS. SHE ALSO REQUESTED COPY OF THE TOXICOLOGY, INR AND CMP. DR. GOFF MADE AWARE. Addendum: 11/25/19 at 1202 by Lona Park CM CMP, INR AND TOXICOLOGY RESULTS FROM Oct SENT TO [facility] EMERGENCY COMMUNICATIONS OPERATOR NATANAEL. Addendum: 11/26/19 at 1520 by Madeline Linda CM DC PLANNING: COVID IS STILL PENDING ,SEEN BY ALL THE CONSULT RECOMMENDED TO CONTINUE CURRENT THERAPY . FAXED THE DAILY LAB TO NATANAEL AT [facility] [phone] . RADHA, TO FOLLOW Addendum: 11/27/19 at 1401 by Madeline Linda CM DC PLANNING: PT HAS A DC ORDER WITH [facility] , [facility] [phone] IS ACCEPTING PATIENT CM TO FOLLOW.
--- NOTE | 2019-11-22 12:55 | NUR ---
PT IS CURRENTLY FINISHING EATING LUNCH AT BEDSIDE WITH NO SIGNS OF DISTRESS NOTED. SAFETY MEASURES IN PLACE AND WILL CONTINUE TO MONITOR.
--- NOTE | 2019-11-22 13:29 | NUR ---
PT KEEPS ASKING WHEN IS GOING TO GO HOME AND ASK FOR JUICE WELL.DOES NOT COMPLAIN OF PAIN AT THIS TIME AND WILL CONTINUE TO MONITOR.
[2019-11-22] MEDS ORDERED: LIDOCAINE VISCOUS 2% 20 ML UDC PO PRN (14:10)
[2019-11-22] MEDS ORDERED: ALUMINUM HYD/MAG/SIMETHICONE 30 ML UDC PO PRN (14:10)
[2019-11-22] MEDS ORDERED: DICYCLOMINE HCL LIQUID 10 MG/5 ML UDC PO PRN (14:10)
--- NOTE | 2019-11-22 15:05 | NUR ---
PT WANTS TO KNOW WHEN HE IS GOING TO BE DISCHARGED AND REQUESTS WATER AT THIS TIME. NO OTHER COMPLAINTS AT THIS TIME.
[2019-11-22] MEDS: LACTOBACILLUS RHAMNOSUS GG 1 EACH CAP PO SCH (15:09)
[2019-11-22] MEDS: PANTOPRAZOLE 40 MG TABEC PO SCH (15:09)
[2019-11-22] MEDS: INSULIN LISPRO SLIDING SCALE 100 UNITS/ML VIAL SUBQ PRN ×2 (17:14→20:21)
--- NOTE | 2019-11-22 17:22 | NUR ---
ADMINISTERED MEDICATIONS PER ORDER AND TOLERATED WELL. NO SIGNS OF DISTRESS NOTED BLOOD GLUCOSE WAS 257 AND 6 UNITS OF INSULIN WAS GIVEN PER PROTOCOL PARAMETERS.
[2019-11-22] MEDS: ACETAMINOPHEN 325 MG TAB PO PRN (18:04)
--- NOTE | 2019-11-22 19:14 | NUR ---
ENDORSED TO CAST SHELL GRINDER NURSE FOR CONTINUITY OF CARE. PT IS IN STABLE CONDITION. PTS TEMPERATURE IS NOW 100.4 AFTER TYLENOL WAS GIVEN AT 1700.
--- NOTE | 2019-11-22 19:17 | NUR ---
RECEIVED PATIENT IN STABLE CONDITION FROM AM SHIFT NURSE FOR CONTINUITY OF CARE. RESPIRATIONS EVEN, UNLABORED. SKIN WARM, DRY. SALINE LOCK TO RIGHT AC 18G PATENT/INTACT, FLUSHES WELL. SALINE LOCK TO RIGHT HAND 20G PATENT/INTACT, FLUSHES WELL. NO C/O PAIN. NO S/SX ACUTE DISTRESS. CALL LIGHT WITHIN REACH. WILL CONTINUE TO MONITOR.
[2019-11-22] MEDS: GLIMEPIRIDE 2 MG TAB PO SCH (20:20)
--- NOTE | 2019-11-22 21:15 | NUR ---
PATIENT WATCHING TV IN BED AND CONTINUES IN STABLE CONDITION. NO C/O PAIN. NO S/SX ACUTE DISTRESS.
--- NOTE | 2019-11-22 23:49 | NUR ---
PATIENT ASLEEP AND IN STABLE CONDITION. NO C/O PAIN. NO S/SX ACUTE DISTRESS. CALL LIGHT WITHIN REACH. WILL CONTINUE TO MONITOR.
[2019-11-23] VITALS: BP 109/46
[2019-11-23] MEDS: ACETAMINOPHEN 325 MG TAB PO PRN ×3 (00:59→20:33)
--- NOTE | 2019-11-23 00:59 | NUR ---
PATIENT C/O UPPER ABDOMINAL PAIN 10/31. MEDICATED ORDERED. ENCOURAGED PATIENT TO SIT UP WHILE RESTING IN BED. CALL LIGHT WITHIN REACH. WILL CONTINUE TO MONITOR.
--- NOTE | 2019-11-23 01:59 | NUR ---
REASSESSED PAIN LEVEL, PATIENT IS ASLEEP. NO S/SX ACUTE DISTRESS. CALL LIGHT WITHIN REACH. WILL CONTINUE TO MONITOR.
--- NOTE | 2019-11-23 03:35 | NUR ---
PATIENT ASLEEP. CONTINUES IN STABLE CONDITION. NO C/O PAIN. NO S/SX ACUTE DISTRESS. CALL LIGHT WITHIN REACH. WILL CONTINUE TO MONITOR.
--- NOTE | 2019-11-23 05:22 | NUR ---
PATIENT CONTINUES IN STABLE CONDITION. NO C/O PAIN. NO S/SX ACUTE DISTRESS. CALL LIGHT WITHIN REACH. WILL CONTINUE TO MONITOR.
--- NOTE | 2019-11-23 06:59 | NUR ---
ENDORSED PATIENT IN STABLE CONDITION TO AM SHIFT NURSE.
--- NOTE | 2019-11-23 07:05 | NUR ---
RECEIVED REPORT FROM METEOROLOGICAL EQUIPMENT REPAIRER NURSE. PT IS CURRENTLY SLEEPING WITH NO SIGNS OF DISTRESS NOTED. SKIN IS INTACT WITH IV PATENT ASYMPTOMATIC. RESPIRATIONS EVEN AND UNLABORED CLEAR THROUGHOUT ON ROOM AIR. BED IS IN LOW SEMI-FOWLERS POSITION WITH SAFETY MEASURES IN PLACE, CALL LIGHT WITHIN REACH.
[2019-11-23] MEDS: BLOOD GLUCOSE MONITORING 1 DEV DEV FS SCH ×4 (07:30→20:46)
[2019-11-23 08:00] VITALS: BP 134/68
[2019-11-23] MEDS: LACTOBACILLUS RHAMNOSUS GG 1 EACH CAP PO SCH (08:49)
[2019-11-23] MEDS: PANTOPRAZOLE 40 MG TABEC PO SCH (08:49)
[2019-11-23] MEDS: LACTULOSE 20 GM/30 ML UDC PO SCH (08:50)
[2019-11-23] MEDS: GLIMEPIRIDE 2 MG TAB PO SCH ×2 (08:50→20:33)
[2019-11-23] MEDS ORDERED: NADOLOL 20 MG TAB PO SCH (09:00)
--- NOTE | 2019-11-23 09:00 | NUR ---
ADMINISTERED MEDICATIONS PER ORDER AND TOLERATED WELL, NO SIGNS OF DISTRESS NOTED. PATIENT STATES THAT HE HAS ABDOMINAL PAIN ALONG WITH HEART BURN. MEDICATIONS WERE ADMINISTERED FOR THIS PER ORDERS. WILL REEVALUATE PATIENT IN ONE HOUR.
--- NOTE | 2019-11-23 10:42 | NUR ---
WENT TO REEVALUATE PT REGARDING ABD PAIN AND ACID REFLUX. PATIENT IS CURRENTLY SLEEPING WITH NO SIGNS OF DISTRESS. SAFETY MEASURES IN PLACE AND WILL CONTINUE TO MONITOR.
--- NOTE | 2019-11-23 11:30 | NUR ---
PT STATES THAT PAIN FEELS A LITTLE BIT BETTER AFTER MEDICATION BUT IS STILL IN PAIN. SAYS THAT HE CAN TOLERATE AND WILL TRY TO FOR LONG POSSIBLE. BLOOD GLUCOSE WAS 190 AND 2 UNITS OF INSULIN WILL BE ADMINISTERED.
--- NOTE | 2019-11-23 12:25 | NUR ---
PT WAS SHAKING UNCONTROLLABLY WITH CHILLS AND FEVER OF 101.3. DR. STEPHENS WAS NOTIFIED AND ADVISED TO START D5 NS AT 40ML/HR AND ALSO ADMINISTER TYLENOL FOR FEVER. PT USED THE RESTROOM AND STOOL WAS VERY LIQUID. PT STATES THAT HE HAS EPIGASTRIC PAIN AND FEELS LIKE ACID REFLUX. GI COCKTAIL WAS GIVEN AROUND 9:30 THIS MORNING. PT STATES THAT IT IS ALSO VERY PAINFUL TO EAT. PT IS NOW ON TELE MONITORING WELL.
--- NOTE | 2019-11-23 12:45 | NUR ---
PT SHAKING HAS SUBSIDED PT USED THE RESTROOM TWICE AND HAS DIARRHEA. STATES THAT HE HAS A HEADACHE WELL. TEMPERATURE IS NOW 100.8. TELE MONITORING PLACED AND PT ON IVF RUNNING AT 60ML. SAFETY MEASURES IN PLACE AND WILL CONTINUE TO MONITOR CLOSELY.
[2019-11-23] MEDS: metroNIDAZOLE 500 MG/NS PREMIX 100 ML IV SCH ×2 (13:00→20:33)
[2019-11-23] MEDS: DEXT 5% / NACL 0.45% 1,000 ML IV SCH (13:01)
--- NOTE | 2019-11-23 15:37 | NUR ---
PT STATES THAT HE IS FEELING ANXIOUS AND WOULD LIKE SOMETHING TO CALM DOWN. RECHECKED VITALS AND TEMPERATURE IS 100.3 AND PULSE IS 96. SPOKE TO DR. MONTALVO AND WILL PUT IN ORDER FOR MEDICATION.
[2019-11-23 16:00] VITALS: BP 96/58
[2019-11-23] MEDS ORDERED: LORazepam 0.5 MG TAB PO SCH (16:00)
--- NOTE | 2019-11-23 16:25 | NUR ---
ST STATES THAT HE STILL FEELS ANXIETY AND ATIVAN WAS ADMINISTERED PER ORDERS AND TOLERATED WELL. BLOOD GLUCOSE WAS 80. PT WANTS TO EAT FOOD AND SIT IN CHAIR. SAFETY MEASURES IN PLACE
--- NOTE | 2019-11-23 18:31 | NUR ---
PT IS CURRENTLY SLEEPING WITH NO SIGNS OF DISTRESS. PHYSICIAN CHANGED FLUID ORDER TO 100ML/HR. SAFETY MEASURES IN PLACE AND WILL CONTINUE TO MONITOR., WILL ENDORSE TO SOFTWARE TEST ANALYST NURSE.
--- NOTE | 2019-11-23 19:15 | NUR ---
RECEIVED BEDSIDE REPORT FROM AM SHIFT NURSE. PATIENT IS RIGHT SIDE LYING AWAKE AND ALERT, WATCHING TV. NO SOB OR DISTRESS NOTED, ON ROOM AIR. RESPIRATIONS EVEN AND UNLABORED. IV ACCESS ON RIGHT HAND 20 GAUGE, PATENT, INTACT AND INFUSING WELL. PATIENT IS AMBULATORY. INITIAL ASSESSMENT DONE. SKIN IS INTACT. BED IN LOW.BED LOCKED. SAFETY MEASURES IN PLACE. CALL LIGHT PLACED WITHIN PATIENT REACH. WILL CONTINUE TO MONITOR PATIENT.
[2019-11-23 20:10] VITALS: BP 109/51
--- NOTE | 2019-11-23 20:35 | NUR ---
PATIENT NOTED WITH TEMP OF 100.6. PRN ACETAMINOPHEN ADMINISTERED. COOLING MEASURES IN PLACE. WILL CONTINUE TO MONITOR PATIENT.
--- NOTE | 2019-11-23 20:47 | NUR ---
PATIENT HAS A BLOOD GLUCOSE RESULT OF 97. NO INSULIN COVERAGE NEEDED.
--- NOTE | 2019-11-23 22:35 | NUR ---
PATIENT NOTED WITH AN ORAL TEMP OF 99.1. BLANKET REMOVED. PATIENT RESTING WITH EYES CLOSED. NO DISTRESS NOTED.
[2019-11-24 00:10] VITALS: BP 104/53
--- NOTE | 2019-11-24 00:15 | NUR ---
VITALS DONE AT THIS TIME. VISIBLE CHEST RISE AND FALL NOTED. CALL LIGHT WITHIN PATIENT REACH. WILL CONTINUE TO MONITOR PATIENT.
[2019-11-24] MEDS: DEXT 5% / NACL 0.45% 1,000 ML IV SCH (02:47)
--- NOTE | 2019-11-24 02:50 | NUR ---
PATIENT WANTED TO AMBULATE AT THIS TIME. ASSISTED BY WRAPPER SIZER. NO DISTRESS NOTED.
[2019-11-24 04:05] VITALS: BP 95/56
[2019-11-24] MEDS: metroNIDAZOLE 500 MG/NS PREMIX 100 ML IV SCH ×3 (04:45→20:18)
[2019-11-24 06:05] LABS: BASOPHILS % (AUTO) 0.1 % (0.0-2.0); EOSINOPHILS % (AUTO) 0.1 % (0.0-4.0); HEMATOCRIT 29.7 % (36-52); HEMOGLOBIN 10.2 g/dL (12.0-18.0); LYMPHOCYTES # (AUTO) 0.2 K/uL (2.0-11.5); LYMPHOCYTES % (AUTO) 2.1 % (20.5-51.1); MEAN CORPUSCULAR HEMOGLOBIN 30 pg (27-31); MEAN CORPUSCULAR HGB CONC 34 g/dL (33-37); MEAN CORPUSCULAR VOLUME 87.9 fL (80-94); MONOCYTES # (AUTO) 0.9 K/uL (0.8-1.0); MONOCYTES % (AUTO) 8.1 % (1.7-9.3); NEUTROPHILS % (AUTO) 89.6 % (42.2-75.2); PLATELET COUNT (AUTO) 37 K/uL (140-450); RED BLOOD CELL COUNT(AUTO) 3.38 MIL/uL (4.20-6.10); RED CELL DISTRIBUTION WIDTH 16.6 % (11.6-13.7); WHITE BLOOD COUNT (AUTO) 11.2 K/uL (4.8-10.8)
--- NOTE | 2019-11-24 06:13 | NUR ---
PATIENT HAD A BLOOD GLUCOSE OF 150. NO INSULIN COVERAGE NEEDED.
[2019-11-24] MEDS: BLOOD GLUCOSE MONITORING 1 DEV DEV FS SCH ×4 (06:32→20:11)
[2019-11-24 06:36] LABS: ANION GAP 13.5 (8-16); CARBON DIOXIDE 20.8 mmol/L (21-32); CREATININE 2.8 mg/dL (0.6-1.3); POTASSIUM 4.3 mmol/L (3.5-5.1)
[2019-11-24 06:42] LABS: MAGNESIUM 1.4 mg/dL (1.8-2.4); PHOSPHORUS 2.6 mg/dL (2.5-4.9)
--- NOTE | 2019-11-24 06:47 | NUR ---
PATIENT IN STABLE CONDITION. WILL ENDORSE TO AM SHIFT NURSE FOR CONTINUITY OF CARE.
--- NOTE | 2019-11-24 07:15 | NUR ---
RECEIVED REPORT FROM NIGHT NURSE, PT IS ON ROOM AIR, NO DISTRESS NOTED AND SAFETY MEASURES IN PLACE, CALL LIGHT WITHIN REACH. WILL CONTINUE TO MONITOR.
[2019-11-24 08:00] VITALS: BP 89/55
[2019-11-24] MEDS: LACTOBACILLUS RHAMNOSUS GG 1 EACH CAP PO SCH (08:54)
[2019-11-24] MEDS: GLIMEPIRIDE 2 MG TAB PO SCH ×2 (08:54→20:18)
[2019-11-24] MEDS: PANTOPRAZOLE 40 MG TABEC PO SCH (08:54)
[2019-11-24] MEDS: LACTULOSE 20 GM/30 ML UDC PO SCH (08:55)
[2019-11-24] MEDS ORDERED: MAG SULF 2000 MG/WATER PREMIX 50 ML IV SCH (09:00)
--- NOTE | 2019-11-24 09:00 | NUR ---
MEDICATIONS DUE GIVEN, PT IS STABLE DENIES PAIN AND PT IS AWAKE AND AMBULATES ON HIS OWN. NO DISTRESS NOTED.SAFETY MEASURES IN PLACE. WILL CONTINUE TO MONITOR,
[2019-11-24] MEDS: NACL 0.9% 1,000 ML IV SCH (09:58)
[2019-11-24] MEDS: INSULIN LISPRO SLIDING SCALE 100 UNITS/ML VIAL SUBQ PRN ×2 (11:24→16:38)
--- NOTE | 2019-11-24 11:30 | NUR ---
MEDICATIONS DUE GIVEN PT IS NOT IN DISTRESS AND DENIES PAIN.
[2019-11-24 12:00] VITALS: BP 92/61
--- NOTE | 2019-11-24 12:00 | NUR ---
PT IS NOT IN DISTRESS AND DENIES PAIN. PT HAD 5 WATERY BOWEL MOVEMENTS, INFORMED MD. WILL CONTINUE TO MONITOR.
[2019-11-24 16:00] VITALS: BP 119/59
--- NOTE | 2019-11-24 17:30 | NUR ---
PT HAD A FEVER OF 103.4 GAVE TYLENOL AND INFORMED MD. WILL CONTINUE TO MONITOR.
[2019-11-24] MEDS: ACETAMINOPHEN 325 MG TAB PO PRN (17:50)
--- NOTE | 2019-11-24 18:54 | NUR ---
ASSESS AND CHECK PT AT THIS TIME, TEMPERATURE 100.0F. PT IS STABLE
--- NOTE | 2019-11-24 19:05 | NUR ---
ENDORSED TO NIGHT NURSE FOR CONTINUITY OF CARE.
--- NOTE | 2019-11-24 19:06 | NUR ---
RECEIVED BEDSIDE REPORT FROM AM SHIFT NURSE. PATIENT IS LYING IN BED, AWAKE AND ALERT. NO SOB OR DISTRESS NOTED. ON ROOM AIR. RESPIRATIONS EVEN AND UNLABORED. IV ACCESS NOTED ON LEFT UA 22 GAUGE, PATENT, INTACT AND INFUSING WELL. PATIENT IS AMBULATORY. INITIAL ASSESSMENT DONE. SKIN IS INTACT. BED IN LOW, BED LOCKED. SAFETY MEASURES IN PLACE. CALL LIGHT PLACED WITHIN PATIENT REACH. WILL CONTINUE TO MONITOR PATIENT.
[2019-11-24] MEDS: HYDROcodone/APAP 7.5/325 MG 1 TAB PO PRN (19:47)
--- NOTE | 2019-11-24 19:50 | NUR ---
PATIENT REQUESTED PRN MEDICATION FOR MODERATE HEADACHE. PRN NORCO GIVEN. WILL CONTINUE TO MONITOR PATIENT.
[2019-11-24] MEDS ORDERED: LORazepam 0.5 MG TAB PO SCH (20:05)
--- NOTE | 2019-11-24 20:12 | NUR ---
PATIENT NOTED WITH BLOOD GLUCOSE OF 83. NO INSULIN COVERAGE NEEDED.
--- NOTE | 2019-11-24 22:12 | NUR ---
ROUNDS DONE. PATIENT RESTING WITH EYES CLOSED. NO SOB OR DISTRESS NOTED. CALL LIGHT WITHIN PATIENT REACH. WILL CONTINUE TO MONITOR PATIENT.
--- NOTE | 2019-11-24 22:50 | NUR ---
PRN ATIVAN ADMINISTERED PER PATIENT REQUEST FOR ANXIETY. WILL CONTINUE TO MONITOR PATIENT.
[2019-11-25 00:10] VITALS: BP 99/61
--- NOTE | 2019-11-25 00:15 | NUR ---
PATIENT SITTING ON CHAIR AT SIDE OF BED. VITALS DONE. NO SOB OR DISTRESS NOTED. CALL LIGHT WITHIN PATIENT REACH. WILL CONTINUE TO MONITOR PATIENT.
[2019-11-25] MEDS: NACL 0.9% 1,000 ML IV SCH ×2 (01:45→04:08)
--- NOTE | 2019-11-25 02:15 | NUR ---
ROUNDS DONE. PATIENT RESTING IN BED WITH EYES CLOSED. VISIBLE CHEST RISE AND FALL NOTED. WILL CONTINUE TO MONITOR PATIENT.
[2019-11-25] MEDS: metroNIDAZOLE 500 MG/NS PREMIX 100 ML IV SCH ×3 (04:09→20:43)
--- NOTE | 2019-11-25 04:20 | NUR ---
ROUNDS DONE. NO SOB OR DISTRESS NOTED. CALL LIGHT WITHIN PATIENT REACH. WILL CONTINUE TO MONITOR PATIENT.
[2019-11-25] MEDS: BLOOD GLUCOSE MONITORING 1 DEV DEV FS SCH ×4 (06:48→20:44)
--- NOTE | 2019-11-25 06:48 | NUR ---
PATIENT HAD A BLOOD GLUCOSE RESULT OF 92. NO INSULIN COVERAGE NEEDED. WILL CONTINUE TO MONITOR PATIENT.
--- NOTE | 2019-11-25 06:49 | NUR ---
PATIENT IN STABLE CONDITION. WILL ENDORSE TO AM SHIFT NURSE FOR CONTINUITY OF CARE.
--- NOTE | 2019-11-25 07:05 | NUR ---
RECEIVED REPORT FROM NIGHT NURSE, PT IS AWAKE ANS STABLE. SAFETY MEASURES IN PLACE AND CALL LIGHT WITHIN REACH. WILL CONTINUE TO MONITOR.
[2019-11-25 07:23] LABS: BASOPHILS % (AUTO) 0.2 % (0.0-2.0); EOSINOPHILS # (AUTO) 0.1 K/uL (0-0.4); HEMATOCRIT 28.9 % (36-52); HEMOGLOBIN 9.9 g/dL (12.0-18.0); LYMPHOCYTES # (AUTO) 0.2 K/uL (2.0-11.5); LYMPHOCYTES % (AUTO) 2.2 % (20.5-51.1); MEAN CORPUSCULAR HEMOGLOBIN 31 pg (27-31); MEAN CORPUSCULAR HGB CONC 34 g/dL (33-37); MONOCYTES # (AUTO) 0.8 K/uL (0.8-1.0); MONOCYTES % (AUTO) 10.7 % (1.7-9.3); NEUTROPHILS # (AUTO) 6.8 K/uL (1.8-7.7); NEUTROPHILS % (AUTO) 85.9 % (42.2-75.2); RED BLOOD CELL COUNT(AUTO) 3.24 MIL/uL (4.20-6.10); RED CELL DISTRIBUTION WIDTH 16.9 % (11.6-13.7)
[2019-11-25 07:35] LABS: ANION GAP 12.1 (8-16); CREATININE 2.7 mg/dL (0.6-1.3); POTASSIUM 4.1 mmol/L (3.5-5.1)
[2019-11-25 07:36] LABS: MAGNESIUM 1.8 mg/dL (1.8-2.4); PHOSPHORUS 2.6 mg/dL (2.5-4.9)
[2019-11-25 07:42] LABS: PLATELET COUNT (AUTO) 37 K/uL (140-450)
[2019-11-25 07:43] LABS: WHITE BLOOD COUNT (AUTO) 7.9 K/uL (4.8-10.8)
[2019-11-25 08:00] VITALS: BP 106/55
--- NOTE | 2019-11-25 08:15 | NUR ---
ENDORSED PT TO NURSE GLENN FOR CONTINUITY OF CARE.
--- NOTE | 2019-11-25 08:18 | NUR ---
RECEIVED REPORT FROM DENISA BAY. PT IS AOX4, NO C/O PAIN, NO SOB, AFEBRILE. AMBULATORY, SKIN INTACT. ON R0OM AIR. IV SITE ON LFA 22G RUNNING NS 60CC/HR. ISOLATION PRECAUTION OBSERVED. WILL CONT TO MONITOR
[2019-11-25] MEDS: LACTULOSE 20 GM/30 ML UDC PO SCH (09:00)
[2019-11-25] MEDS: GLIMEPIRIDE 2 MG TAB PO SCH ×2 (09:00→20:20)
[2019-11-25] MEDS: LACTOBACILLUS RHAMNOSUS GG 1 EACH CAP PO SCH (09:00)
[2019-11-25] MEDS: PANTOPRAZOLE 40 MG TABEC PO SCH (09:00)
--- NOTE | 2019-11-25 10:00 | NUR ---
DUE MEDS GIVEN
[2019-11-25] MEDS: HYDROcodone/APAP 7.5/325 MG 1 TAB PO PRN (10:15)
--- NOTE | 2019-11-25 12:15 | NUR ---
PT EATING LUNCH. ALL NEEDS MET AT THIS TIME
--- NOTE | 2019-11-25 13:10 | NUR ---
INCENTIVE SPIROMETER GIVEN TO PATIENT, ABLE TO USED THE INCENTIVE SPIROMETER WITHOUT DIFFICULTY
[2019-11-25 13:11] LABS: ALBUMIN 2.3 g/dL (3.4-5.0); BILIRUBIN,DIRECT 1.6 mg/dL (0.0-0.3); TOTAL BILIRUBIN 2.2 mg/dL (0.0-1.0)
--- NOTE | 2019-11-25 13:39 | NUR ---
CURB MACHINE OPERATOR NOTE: Basic Screen: Yes High Risk DC Screen [place]: ABDULLAHI ELLER Home Relationship: Pre-Admission Living Arrangements: Lives with Other Prior ADL Independent Current Home Health Name/Tel: N/A Current DME/02 Name/Tel: N/A Current Hospice Name/Tel: N/A Current Dialysis Name/Tel: N/A Healthcare Decision Maker: Patient Advance Directive No Physician Orders for Life Sustaining Treatment Form No Patient/Family Have Educational Needs No Discipline: Case Mgt/Social Svcs Tentative Discharge Plan/Destination: No Needs Identified Will require assistance post discharge: No Referred to Interlibrary Loan Specialist: No Tentative Discharge Plan Summary: PATIENT IS A 64-YEAR-OLD MALE ADMITTED FOR BILARY COLIC. PATIENT HAS PMHX OF HYPERTENSION, DM, CIRRHOSIS, LIVER CANCER, AND GERD. PATIENT WAS ADMITTED FROM HOME WHERE HE LIVES WITH AND CHILDREN. SW CONTACTED PATIENT'S ABDULLAHI ELLER [phone] TO VERIFY DEMOGRAPHICS. ABDULLAHI REQUESTED SW SPEAK TO PATIENT'S SON ORQUIDEA ELLER. PER ORQUIDEA, PATIENT IS INDEPENDENT WITH ALL ADLS AND REPORTS NO HISTORY OF MENTAL HEALTH. ORQUIDEA STATED THAT PATIENT HAS A HISTORY OF ALCOHOLISM BUT PATIENT HAD QUIT WHEN HE WAS DIAGNOSED WITH LIVER CANCER 2 YEARS AGO. SW INQUIRED IF SUBSTANCE ABUSE RESOURCES WOULD ASSIST PATIENT, BUT ORQUIEDA REFUSED STATING ALCOHOLISM IS NO LONGER AN ISSUE. TENTATIVE DISCHARGE PLAN IS FOR PATIENT TO RETURN HOME. NO FURTHER NEEDS IDENTIFIED. Signature: MARY JO SARGENT Date: November 25, 2019 Time: 13:38
[2019-11-25] MEDS ORDERED: ALBUMIN HUMAN 25% 100 ML IV SCH (14:30)
[2019-11-25 16:00] VITALS: BP 118/68
--- NOTE | 2019-11-25 17:00 | NUR ---
BLOOD SUGAR 145. NO COVERAGE. V/S WNL
--- NOTE | 2019-11-25 19:00 | NUR ---
STOOL FOR C.DIFF AND OCCULT BLOOD COLLECTED. ENDORSED TO EMT BASIC FOR CONTINUITY OF CARE.
--- NOTE | 2019-11-25 19:02 | NUR ---
RECEIVED BEDSIDE REPORT FROM DAY SHIFT NURSEGLENN. COLLECTED STOOL FORMED AND PT HAD CEPHULAC YESTERDAY. ASKED TO RESIDENT FOR C.DIFF ORDER CANCEL. PT AAOX4, BREATHING EVEN AND UNLABORED. SKIN INTACT, WARM AND DRY TO TOUCH. IV SITE ON LFA 22G, RFA, 22G, PATENT, INTACT, AND ASYMPTOMATIC. POC REVIEWED AND DISCUSSED. PT VERBALIZED UNDERSTANDING. BED IN LOW POSITION, CALL LIGHT WITHIN REACH.
[2019-11-25] MEDS: INSULIN LISPRO SLIDING SCALE 100 UNITS/ML VIAL SUBQ PRN (20:48)
--- NOTE | 2019-11-25 20:50 | NUR ---
GIVEN YISSEL AND REGGIE MD ORDERED. BS CHECKED, 183. ADMINISTERED INSULIN SLIDING SCALE.
--- NOTE | 2019-11-25 22:30 | NUR ---
PT SITING ON THE CHAIR. NO ACUTE DISTRESS NOTED.
[2019-11-26] VITALS: BP 113/68
--- NOTE | 2019-11-26 | NUR ---
VS WITHIN PT'S BASELINE. WILL CONTINUE TO MONITOR.
--- NOTE | 2019-11-26 02:45 | NUR ---
PT SLEEPING IN BED COMFORTABLY. NO ACUTE DISTRESS NOTED.
[2019-11-26] MEDS: metroNIDAZOLE 500 MG/NS PREMIX 100 ML IV SCH (05:42)
[2019-11-26] MEDS: BLOOD GLUCOSE MONITORING 1 DEV DEV FS SCH ×4 (05:42→21:04)
--- NOTE | 2019-11-26 05:42 | NUR ---
GIVEN FLAGYL MD ORDERED. PT TOLERATED WELL. BS CHECKED, 132, NO INSULIN COVERAGE NEEDED.
--- NOTE | 2019-11-26 06:47 | NUR ---
PT IN STABLE CONDITION. WILL ENDORSE PT TO DAY SHIFT NURSE FOR CONTINUOUS CARE.
[2019-11-26] MEDS: ACETAMINOPHEN 325 MG TAB PO PRN (06:51)
--- NOTE | 2019-11-26 06:53 | NUR ---
PT C/O HEADACHE. GIVEN TYLENOL MD ORDERED. PT TOLERATED WELL.
--- NOTE | 2019-11-26 07:20 | NUR ---
RECEIVED PT FROM DIRECTOR [facility] NURSE, PT IS AWAKE AND LYING ON THE BED WITH SAFETY PRECAUTION IN PLACE, PT IS ON DROPLET ISOLATION, PERIPHERAL LINES ON THE RT AC G. 22 ON SALINE LOCK AND LEFT FA G. 22 WITH NS INFUSING AT 60ML/HR, AOX4 AND ON ROOM AIR, PT DENIES PAIN AND NO SIGN OF DISTRESS NOTED. WILL MONITOR PT.
[2019-11-26 07:43] LABS: BASOPHILS % (AUTO) 0.4 % (0.0-2.0); EOSINOPHILS # (AUTO) 0.1 K/uL (0-0.4); EOSINOPHILS % (AUTO) 1.8 % (0.0-4.0); HEMATOCRIT 29.9 % (36-52); HEMOGLOBIN 10.3 g/dL (12.0-18.0); LYMPHOCYTES # (AUTO) 0.2 K/uL (2.0-11.5); LYMPHOCYTES % (AUTO) 2.7 % (20.5-51.1); MEAN CORPUSCULAR HEMOGLOBIN 30 pg (27-31); MEAN CORPUSCULAR HGB CONC 34 g/dL (33-37); MEAN CORPUSCULAR VOLUME 87.6 fL (80-94); MONOCYTES # (AUTO) 0.9 K/uL (0.8-1.0); MONOCYTES % (AUTO) 11.3 % (1.7-9.3); NEUTROPHILS % (AUTO) 83.8 % (42.2-75.2); PLATELET COUNT (AUTO) 34 K/uL (140-450); RED BLOOD CELL COUNT(AUTO) 3.41 MIL/uL (4.20-6.10); RED CELL DISTRIBUTION WIDTH 16.7 % (11.6-13.7); WHITE BLOOD COUNT (AUTO) 8.3 K/uL (4.8-10.8)
[2019-11-26 08:24] LABS: ALBUMIN 2.6 g/dL (3.4-5.0); ANION GAP 12.8 (8-16); CARBON DIOXIDE 20.4 mmol/L (21-32); CREATININE 2.4 mg/dL (0.6-1.3); MAGNESIUM 1.9 mg/dL (1.8-2.4); PHOSPHORUS 1.8 mg/dL (2.5-4.9); POTASSIUM 4.2 mmol/L (3.5-5.1); TOTAL BILIRUBIN 2.7 mg/dL (0.0-1.0)
[2019-11-26 08:37] LABS: PROTHROMBIN TIME 13.7 secs (10.8-13.4)
[2019-11-26] MEDS: LACTOBACILLUS RHAMNOSUS GG 1 EACH CAP PO SCH (08:48)
[2019-11-26] MEDS: PANTOPRAZOLE 40 MG TABEC PO SCH (08:48)
[2019-11-26] MEDS: GLIMEPIRIDE 2 MG TAB PO SCH ×2 (08:48→20:56)
--- NOTE | 2019-11-26 08:48 | NUR ---
PT IS AWAKE AND AM SCHEDULED MEDICATIONS WERE GIVEN TO PT AND TOLERATED, NO SIGN OF DISTRESS NOTED AND WILL MONITOR PT.
--- NOTE | 2019-11-26 10:30 | NUR ---
PT IS RESTING NOW, NO SIGN OF DISTRESS NOTED AND WILL MONITOR PT.
[2019-11-26] MEDS: NACL 0.9% 1,000 ML IV SCH ×2 (11:05→23:55)
[2019-11-26] MEDS ORDERED: SODIUM PHOS / POTASSIUM PHOS 1 PKT PDR PO SCH (12:01)
--- NOTE | 2019-11-26 12:44 | NUR ---
PT WAS GIVEN INSULIN 2 UNITS FOR THE BLOOD GLUCOSE OF 200 AND ORAL SCHEDULED MEDICATIONS, TOLERATED, NO SIGN OF DISTRESS NOTED AND WILL MONITOR PT.
[2019-11-26] MEDS: INSULIN LISPRO SLIDING SCALE 100 UNITS/ML VIAL SUBQ PRN ×2 (12:52→16:56)
--- NOTE | 2019-11-26 15:10 | NUR ---
11/26/19 INITIAL ASSESSMENT COMPLETED PLEASE REFER TO NUTRITION ASSESSMENT UNDER CARE ACTIVITY FOR ESTIMATED NUTRITIONAL NEEDS. 1. CONTINUE HEPATIC, CCHO 60GM, AND MECHANICAL SOFT DIET TOLERATED 2. RECOMMEND GLUCERNA BID 3. ENCOURAGE PO INTAKE 4. RD TO FOLLOW-UP 3-5 DAYS, MODERATE RISK MINNA TAMAYO RD
--- NOTE | 2019-11-26 16:56 | NUR ---
PT WAS GIVEN INSULIN 4 UNITS FOR BLOOD GLUCOSE OF 215. SQ GIVEN TO ABDOMEN. PATIENT TOLERATED WELL
[2019-11-26 17:44] VITALS: BP 105/59
--- NOTE | 2019-11-26 19:37 | NUR ---
ENDORSED PT TO MOULDER OPERATOR NURSEZULEYMA FOR CONTINUITY OF CARE.
--- NOTE | 2019-11-26 19:38 | NUR ---
RECEIVED SHIFT REPORT FROM DAYSHIFT NURSE FOR CONTINUITY OF CARE. PATIENT AWAKE AND ALERT. TELE MONITOR ATTACHED, SAFETY MEASURES IN PLACE AND CALL LIGHT WITHIN REACH
--- NOTE | 2019-11-26 20:40 | NUR ---
RECEIVED A CALL FROM LAB INFORMING ME THAT PATIENT ROMA ELLER IS COVID-19 (NEGATIVE) WILL INFORM PHYSICIAN.
--- NOTE | 2019-11-26 20:45 | NUR ---
INFORMED RESIDENT ANIBAL OF LAB RESULT.
[2019-11-26] MEDS ORDERED: LORazepam 1 MG TAB PO PRN (23:10)
--- NOTE | 2019-11-26 23:55 | NUR ---
PATIENT COMPLAINED OF ANXIETY AND DIFFICULTY SLEEPING. I ASKED IF THE PATIENT CAN BE GIVEN SOMETHING FOR ANXIETY. RESIDENT PLACED ORDER AND I ADMINISTERED MEDICATION
[2019-11-27] VITALS: BP 112/55
--- NOTE | 2019-11-27 01:30 | NUR ---
REASSESSED PATIENT FOR MEDICATION EFFECTIVENESS. PT SLEEPING NO SIGNS OF DISTRESS NOTED. TELE MONITOR ATTACHED AND CALL LIGHT WITHIN REACH
--- NOTE | 2019-11-27 04:32 | NUR ---
OBTAINED AM VITALS FROM PATIENT. NO SIGNS OF DISTRESS NOTED. SAFETY MEASURES IN PLACE TELE MONITOR ATTACHED AND CALL LIGHT WITHIN REACH
[2019-11-27 06:20] LABS: MEAN CORPUSCULAR HEMOGLOBIN 30 pg (27-31); MEAN CORPUSCULAR HGB CONC 35 g/dL (33-37); MEAN CORPUSCULAR VOLUME 86.1 fL (80-94); PLATELET COUNT (AUTO) 31 K/uL (140-450); RED BLOOD CELL COUNT(AUTO) 3.37 MIL/uL (4.20-6.10); RED CELL DISTRIBUTION WIDTH 16.5 % (11.6-13.7); WHITE BLOOD COUNT (AUTO) 6.8 K/uL (4.8-10.8)
[2019-11-27 06:43] LABS: ALBUMIN 2.3 g/dL (3.4-5.0); ANION GAP 12.7 (8-16); CARBON DIOXIDE 22.7 mmol/L (21-32); CREATININE 2.3 mg/dL (0.6-1.3); PHOSPHORUS 2.6 mg/dL (2.5-4.9); POTASSIUM 4.4 mmol/L (3.5-5.1); TOTAL BILIRUBIN 2.5 mg/dL (0.0-1.0)
--- NOTE | 2019-11-27 06:50 | NUR ---
OBTAINED A MORNING BS OF 58. PATIENT AWAKE AND ALERT NO SIGNS OF DISTRESS NOTED. RESPIRATIONS EVEN AND UNLABORED. TELE MONITOR ATTACHED CALL LIGHT WITHIN REACH.
--- NOTE | 2019-11-27 06:57 | NUR ---
ADMINISTERED D50 PER PROTOCOL. PT TOLERATED WELL. NO SIGNS OF DISTRESS NOTED. WILL ENDORSE REASSESSMENT TO DAYSHIFT NURSE.
--- NOTE | 2019-11-27 07:05 | NUR ---
ENDORSED PATIENT TO DAYSHIFT NURSE FOR CONTINUITY OF CARE. PATIENT AWAKE AND ALERT NO SIGNS OF DISTRESS NOTED. ENDORSED D50 ADMINISTERED AND REASSESSMENT WILL NEED TO BE DONE
--- NOTE | 2019-11-27 07:15 | NUR ---
RECEIVED REPORT FROM SPRING ENCASER NURSE. PATIENT LYING DOWN IN BED TALKING ON HIS CELLPHONE. NO DISTRESS NOTED. DENIES ANY PAIN. AAOX4, CALM, COOPERATIVE, SKIN COLOR APPROPRIATE TO ETHNICITY, WARM TO TOUCH. SKIN INTACT. IV SITE INTACT, PATENT, AND ON SALINE LOCK. RESPIRATIONS EVEN, UNLABORED, ON ROOM AIR. REVIEWED PLAN OF CARE WITH PATIENT. PATIENT VERBALIZED UNDERSTANDING. SAFETY MEASURES IN PLACE, CALL LIGHT WITHIN REACH. WILL CONTINUE TO MONITOR.
[2019-11-27 07:31] LABS: LYMPHOCYTES % (MANUAL) 4 % (20-46)
[2019-11-27 07:32] LABS: EOSINOPHILS % (MANUAL) 1 % (0-4); MONOCYTES % (MANUAL) 12 % (5-12)
[2019-11-27 08:00] VITALS: BP 130/71
[2019-11-27] MEDS: BLOOD GLUCOSE MONITORING 1 DEV DEV FS SCH ×2 (08:02→11:30)
[2019-11-27] MEDS: LACTOBACILLUS RHAMNOSUS GG 1 EACH CAP PO SCH (08:58)
[2019-11-27] MEDS: GLIMEPIRIDE 2 MG TAB PO SCH (08:59)
[2019-11-27] MEDS: PANTOPRAZOLE 40 MG TABEC PO SCH (08:59)
--- NOTE | 2019-11-27 09:02 | NUR ---
SCHEDULED MEDICATIONS DUE GIVEN. WILL CONTINUE TO MONITOR.
[2019-11-27] MEDS ORDERED: LACT10CA1 PO (09:18)
[2019-11-27] MEDS ORDERED: PANT40EC28 PO (09:18)
[2019-11-27] MEDS ORDERED: GLIM2TAB PO (09:18)
[2019-11-27] MEDS ORDERED: NITR100C7 PO (10:58)
[2019-11-27 12:00] VITALS: BP 127/75
[2019-11-27] MEDS: INSULIN LISPRO SLIDING SCALE 100 UNITS/ML VIAL SUBQ PRN (12:48)
--- NOTE | 2019-11-27 13:40 | NUR ---
DISCHARGE INSTRUCTIONS GIVEN TO PATIENT IN PREFERRED LANGUAGE OF ROMANSH. INSTRUCTIONS ON NEW/CHANGED MEDICATION REGIMEN AND SIDE EFFECTS, FOLLOW-UP WITH PCP AND [facility] [place] [place] LIVER GIS ADMINISTRATOR, AND DIET REGIMEN. ANSWERED ALL OF PATIENT'S QUESTIONS REGARDING DISCHARGE. PATIENT VERBALIZED UNDERSTANDING. PATIENT'S DAUGHTER TO PICK HIM UP AROUND 1500 TODAY, AWAITING FOR RIDE HOME. WILL CONTINUE TO MONITOR.
[2019-11-27] MEDS ORDERED: SENN-72 PO (14:31)
--- NOTE | 2019-11-27 15:25 | NUR ---
PATIENT'S SON AT [facility] READY TO TAKE PATIENT HOME. ESCORTED PATIENT DOWN TO [facility] VIA WHEELCHAIR. IV SITE REMOVED WITH MINIMAL BLOOD AND LUMEN COMPLETELY INTACT. ID BANDS REMOVED. PATIENT DISCHARGED AT THIS TIME IN STABLE CONDITION TO HOME WITH HOME HEALTH.
== END 2019-11-27 15:20 | disposition home health service (06) | DRG 391 ==
LOC: MED 13:30 → EEVIPCON 16:51 → MTU 16:51
PROVIDERS: ADMIT General Practice; ATTEND General Practice
PROC: 0DB68ZZ Excision of Stomach, Via Natural or Artificial Opening Endoscopic (ICD-10-PCS; principal; 2019-11-22 10:00)
PROC: 06L38CZ Occlusion of Esophageal Vein with Extraluminal Device, Via Natural or Artificial Opening Endoscopic (ICD-10-PCS; 2019-11-22 10:00)
DX: K57.90 Diverticulosis of intestine, part unspecified, without perforation or abscess without bleeding (principal); N17.0 Acute kidney failure with tubular necrosis; I50.43 Acute on chronic combined systolic (congestive) and diastolic (congestive) heart failure; D61.818 Other pancytopenia; N39.0 Urinary tract infection, site not specified; J98.11 Atelectasis; E87.1 Hypo-osmolality and hyponatremia; I85.10 Secondary esophageal varices without bleeding; K25.9 Gastric ulcer, unspecified as acute or chronic, without hemorrhage or perforation; K74.60 Unspecified cirrhosis of liver; E83.42 Hypomagnesemia; I12.9 Hypertensive chronic kidney disease with stage 1 through stage 4 chronic kidney disease, or unspecified chronic kidney disease; N18.3 Chronic kidney disease, stage 3 (moderate); B96.20 Unspecified Escherichia coli [E. coli] as the cause of diseases classified elsewhere; E11.22 Type 2 diabetes mellitus with diabetic chronic kidney disease; E66.9 Obesity, unspecified; K21.9 Gastro-esophageal reflux disease without esophagitis; K75.81 Nonalcoholic steatohepatitis (NASH); K80.20 Calculus of gallbladder without cholecystitis without obstruction; L80 Vitiligo; Z20.828 Contact with and (suspected) exposure to other viral communicable diseases; Z85.05 Personal history of malignant neoplasm of liver; Z79.84 Long term (current) use of oral hypoglycemic drugs; Z79.899 Other long term (current) drug therapy; Z68.34 Body mass index [BMI] 34.0-34.9, adult
CPT/HCPCS: 36415; 71045; 76705; 80048; 80053; 80076; 80305; 81001; 82140; 82150; 82272; 82550; 82948; 83036; 83605; 83615; 83690; 83735; 83880; 84100; 84439; 84443; 84484; 85025; 85379; 85610; 85651; 85730; 86140; 86677; 87040; 87081; 87086; 87186; 88305; 88312; 88313; 96361; 96365; 96375; 97161-GP; 99285; J0696; J1200; J1815; J1885; J2250; J2270; J2405; J3010; J3475; J3490; J7030; J7042; J7060; P9046; Q0092

== ENCOUNTER 2022-05-09 03:26 | Inpatient (IN) | payer OTHER, MEDICAID ==
[2022-05-08] MEDS: MYCOPHENOLATE 250 MG CAP PO SCH (22:16)
[~2022-05-09] VITALS: Ht 167.6 cm; Wt 78.5 kg
[~2022-05-09 03:26] MED LIST changes: -FINA5TAB5 PO; -FURO20TA8 PO; -GABA-636 PO; +GLIM2TAB PO; -GLIP5TAB13 PO; +LACT10CA1 PO; -LACT10SO11 PO; +NITR100C7 PO; -OMEP20TC12 PO; +PANT40EC56 PO; +SENN-72 PO; -SPIR50TA PO; -TERA5CAP8 PO
[2022-05-09 03:36] VITALS: BP 112/74
--- NOTE | 2022-05-09 03:46 | NUR ---
IN TRIAGE FOR MSE
--- NOTE | 2022-05-09 03:47 | NUR ---
NOTIFIED OF SEPSIS ALERT.
--- NOTE | 2022-05-09 03:47 | NUR ---
BIB SON C/O INCREASED CONFUSION X2 DAYS, WATKINS, NAUSEA AND DIFFICULTY STANDING. +DIZZINESS, DENIES BLURRED VISION. PT STATES BEFORE THE SYMPTOMS STARTED HE WAS FEELING ANXIOUS, BEFAST NEGATIVE. PT IS ON UNKNOWN BLOOD THINNER. PMH LIVER TRANSPLANT 2020, RENAL TRANSPLANT 12/2021, DM.
--- NOTE | 2022-05-09 03:49 | NUR ---
BS 159
--- NOTE | 2022-05-09 03:54 | NUR ---
PT TO BED 7
--- NOTE | 2022-05-09 03:54 | NUR ---
Patient taken to bed 7.
[2022-05-09] MEDS ORDERED: NACL 0.9% 2,000 ML IV ONE (03:55)
[2022-05-09] MEDS ORDERED: NACL 0.9% 1,000 ML IV ONE ×2 (03:55→17:50)
[2022-05-09] MEDS ORDERED: cefTRIAXone 2,000 MG in DEXTROSE 5% 100 ML IV ONE (03:55)
[2022-05-09] MEDS ORDERED: cefTRIAXone 1,000 MG VIAL ONE (04:01)
[2022-05-09] MEDS ORDERED: cefTRIAXone 2,000 MG VIAL ONE (04:03)
--- NOTE | 2022-05-09 04:09 | NUR ---
PT TAKEN TO CT
--- NOTE | 2022-05-09 04:24 | NUR ---
PT RETURN FROM CT
--- NOTE | 2022-05-09 04:27 | NUR ---
20G IV CATH PLACED IN R AC. SON AT BEDSIDE.
--- NOTE | 2022-05-09 04:35 | NUR ---
LABS DRAWN AND TAKEN TO LAB
--- NOTE | 2022-05-09 04:53 | NUR ---
PT IS ON 3L O2. SPO2 98% 3L
--- NOTE | 2022-05-09 05:04 | NUR ---
COVID AND FLU SWAB COLLECTED AND SENT TO LAB
[2022-05-09 05:12] LABS: EOSINOPHILS # (AUTO) 0.1 K/uL (0-0.4); EOSINOPHILS % (AUTO) 2.2 % (0.0-4.0); HEMATOCRIT 26.1 % (36-52); HEMOGLOBIN 8.8 g/dL (12.0-18.0); LYMPHOCYTES # (AUTO) 0.1 K/uL (2.0-11.5); LYMPHOCYTES % (AUTO) 2.6 % (20.5-51.1); MEAN CORPUSCULAR HEMOGLOBIN 31 pg (27-31); MEAN CORPUSCULAR HGB CONC 34 g/dL (33-37); MEAN CORPUSCULAR VOLUME 91.7 fL (80-94); MONOCYTES % (AUTO) 1.5 % (1.7-9.3); NEUTROPHILS # (AUTO) 2.4 K/uL (1.8-7.7); NEUTROPHILS % (AUTO) 93.7 % (42.2-75.2); PLATELET COUNT (AUTO) 197 K/uL (140-450); RED BLOOD CELL COUNT(AUTO) 2.84 MIL/uL (4.20-6.10); WHITE BLOOD COUNT (AUTO) 2.6 K/uL (4.8-10.8)
[2022-05-09 05:19] LABS: ALBUMIN 3.2 g/dL (3.4-5.0); ANION GAP 17.1 (8-16); ASPARTATE AMINOTRANSFERASE 19 U/L (15-37); CARBON DIOXIDE 19.6 mmol/L (21-32); CHLORIDE 93 mmol/L (98-107); CREATININE 2.2 mg/dL (0.6-1.3); GFR ARICAN-AMERICAN 38 mL/min (>90); GLUCOSE 176 mg/dL (74-106); POTASSIUM 4.7 mmol/L (3.5-5.1); SODIUM SERUM 125 mmol/L (136-145); TOTAL BILIRUBIN 0.6 mg/dL (0.0-1.0); UREA NITROGEN, BLOOD 32 mg/dL (7-18)
[2022-05-09 05:22] LABS: SALICYLATE < 2.8 mg/dL (2.8-20.0)
[2022-05-09 05:28] LABS: ACETAMINOPHEN < 0.5 ug/ml (10-30)
[2022-05-09 06:06] LABS: APPEARANCE,URINE CLEAR (CLEAR); BILIRUBIN,URINE NEGATIVE (NEGATIVE); BLOOD, URINE TRACE-I (NEGATIVE); COLOR,URINE YELLOW (YELLOW); LEUKOCYTE ESTERASE ,URINE NEGATIVE (NEGATIVE); NITRITE, URINE NEGATIVE (NEGATIVE); UGLUCOSE NEGATIVE (NEGATIVE)
[2022-05-09] MEDS ORDERED: SODI650T2 PO (06:07)
[2022-05-09] MEDS ORDERED: PANT40EC PO (06:07)
[2022-05-09] MEDS ORDERED: PRED5TAB7 PO (06:07)
[2022-05-09] MEDS ORDERED: DOCU-299 PO (06:07)
[2022-05-09] MEDS ORDERED: CARV3.12 PO (06:07)
[2022-05-09] MEDS ORDERED: CARV6.25 PO (06:07)
[2022-05-09] MEDS ORDERED: ASPI81EC20 PO (06:07)
[2022-05-09] MEDS ORDERED: URSO300C14 PO (06:07)
[2022-05-09] MEDS ORDERED: CEL250 PO (06:07)
[2022-05-09] MEDS ORDERED: [UNRECOGNIZED DRUG - CODE] PO (06:07)
[2022-05-09] MEDS ORDERED: TACR1CAP17 PO (06:07)
[2022-05-09] MEDS ORDERED: ATA10 PO (06:07)
[2022-05-09 06:18] LABS: BARBITURATE, URINE NEGATIVE ng/ml (NEG <=200)
[2022-05-09 06:19] LABS: BENZODIAZEPINE, URINE NEGATIVE ng/mL (NEG <=200); CANNABINOID, URINE POSITIVE ng/mL (NEG <=50); COCAINE, URINE NEGATIVE ng/mL (NEG <=300); OPIATE, URINE NEGATIVE ng/mL (NEG <=2000); PHENCYCLIDINE SCREEN,URINE NEGATIVE ng/mL (NEG <=25)
[2022-05-09 06:37] LABS: RBC,URINE 0-5 /HPF (0-5); WBC,URINE 0-5 /HPF (0-5)
[2022-05-09 06:38] LABS: OTHER CASTS, URINE None Seen /LPF (None Seen)
--- NOTE | 2022-05-09 06:46 | NUR ---
ADMISSION TO TELE. PT WILL BE A HOLD.
--- NOTE | 2022-05-09 07:21 | NUR ---
REPORT GIVEN TO SWAPNA MENDEZ. TRANSFER OF CARE AT THIS TIME
--- NOTE | 2022-05-09 07:22 | NUR ---
REPORT RECEIVED FROM EULA MENDEZ. ASSUMED CARE AT THIS TIME
[2022-05-09] MEDS ORDERED: MAG SULF 2000 MG/WATER PREMIX 50 ML IV PRN (08:05)
[2022-05-09] MEDS ORDERED: MORPHINE SULFATE 2 MG/ML SYR IVP PRN (08:05)
[2022-05-09] MEDS ORDERED: DOCUSATE SODIUM 100 MG GELCAP PO PRN (08:05)
[2022-05-09] MEDS ORDERED: ONDANSETRON 4 MG/2 ML VIAL IVP PRN (08:05)
[2022-05-09] MEDS ORDERED: ACETAMINOPHEN 325 MG TAB PO PRN (08:05)
[2022-05-09] MEDS ORDERED: ZOLPIDEM 10 MG TAB PO PRN (08:05)
[2022-05-09] MEDS ORDERED: POTASSIUM CHLORIDE 10 MEQ TABER PO PRN (08:05)
--- NOTE | 2022-05-09 08:35 | NUR ---
MD SEYMOUR AT BEDSIDE FOR EVALUATION
[2022-05-09] MEDS ORDERED: LORazepam 2 MG/ML VIAL ONE (08:38)
[2022-05-09] MEDS: carvediloL 12.5 MG TAB PO SCH ×2 (08:54→22:16)
[2022-05-09] MEDS: DOCUSATE SODIUM 100 MG GELCAP PO SCH ×3 (08:55→22:30)
[2022-05-09] MEDS ORDERED: MYCOPHENOLATE 250 MG CAP PO SCH (09:00)
[2022-05-09] MEDS ORDERED: ursodioL 300 MG CAP PO SCH (09:00)
[2022-05-09] MEDS ORDERED: ECOTRIN 81 MG TABEC PO SCH (09:00)
[2022-05-09] MEDS ORDERED: TACROLIMUS 0.5 MG CAP PO SCH (09:00)
[2022-05-09 09:01] LABS: ANION GAP 18.5 (8-16); CARBON DIOXIDE 18.3 mmol/L (21-32); CREATININE 1.9 mg/dL (0.6-1.3); POTASSIUM 4.8 mmol/L (3.5-5.1)
--- NOTE | 2022-05-09 09:13 | NUR ---
Patient will be admitted to care of MD SEYMOUR. Admited to TELE. Will go to room 126A . Belongings list completed. Report to ARLETTE CRAWLEY .
[2022-05-09 09:50] VITALS: BP 141/65
[2022-05-09] MEDS: TACROLIMUS 1 MG CAP PO SCH ×2 (10:00→21:30)
--- NOTE | 2022-05-09 10:54 | NUR ---
PATIENT HAS BEEN SCREENED AND CATEGORIZED MODERATE NUTRITION RISK. PATIENT WILL BE SEEN WITHIN 3-5 DAYS OF ADMISSION. 05/09/22-05/14/[address]
[2022-05-09] MEDS: MYCOPHENOLATE 250 MG CAP PO SCH (11:32)
--- NOTE | 2022-05-09 11:42 | NUR ---
P.T. NOTES P.T. EVAL COMPLETED; REFER TO EVAL FOR DETAILS.
[2022-05-09 12:00] VITALS: BP 124/55
--- NOTE | 2022-05-09 12:48 | NUR ---
Chart checked and completed. The patient's care was reviewed and supervised by Kelley Masters RN.
[2022-05-09 16:00] VITALS: BP 128/61
--- NOTE | 2022-05-09 18:05 | NUR ---
MS AWARE OF SODIUM 129, NEW ORDERS RECEIVED. NS INFUSING TO RAC AT 100ML/HR PER MD ORDER.
--- NOTE | 2022-05-09 19:15 | NUR ---
PATIENT RESTING IN BED, AAO x3, RESPIRATIONS EVEN AND UL ON 4LNC. NS INFUSING TO RAC AT 100ML/HR PER MD ORDER, IV SITE PATENT AND INTACT. NO C/O PAIN/DISCOMFORT. ALL NEEDS MET THROUGHOUT SHIFT. NO SIGNIFICANT CHANGES THROUGHOUT SHIFT. BED IN LOWEST POSITION, SIDE RAILS x2, CALL LIGHT IN REACH, SAFETY MEASURES IN PLACE. REPORT GIVEN TO PM NURSE FOR CONTINUITY OF CARE.
[2022-05-09 20:00] VITALS: BP 117/72
--- NOTE | 2022-05-09 20:25 | NUR ---
ARRIVED AT BEDSIDE, PT SATING 88% ON 4LNC. TITRATED TO 7LPM SATING 90% AND FEW MOMENTS LATER EXCHANGED 7LNC FOR OXIMIZER AND INCREASED FIO2 TO 12LPM WITH SPO2 94-96% TEN MINUTE POST EXCHANGE. PT APPEARS CONFUSED AND TRYING TO GET OUT OF BED. PT PULLED OUT IV'S RN IS AWARE AND AT BEDSIDE. Addendum: 05/10/22 at 2015 by Cammy Spring RT CONTINUOUS PULSE OX WAS PLACED AT BEDSIDE AND PLUGGED INTO RED OUTLET.
--- NOTE | 2022-05-09 20:30 | NUR ---
SHOWING AGITATION , UP AND DOWN TO THE BED , - O2 SAT 95 % , BS 147 , 44 20 , BP 127 / 77 - WILL MEDICATE W/ ATIVAN , ONCE FURTHER ASSESSBY RT . Addendum: 05/10/22 at 0554 by Luz Rai RN RR 22 LABORED BREATHING . REFER TO RT
--- NOTE | 2022-05-09 20:45 | NUR ---
IV OUT , IV NEEDLE INTACT , MIN. BLEEDING .- RT AT BEDSIDE , WILL CONT. TO MONITOR , CALL LIGHT WITHIN R4EACH .
[2022-05-09] MEDS: LORazepam 2 MG/ML VIAL IVP PRN (21:00)
--- NOTE | 2022-05-09 21:00 | NUR ---
LABORED BREATHING , RT ASSESED THE PT . PT IS CONFUSE - ENNSURE SAFETY . CLOSELY WATCH . Addendum: 05/10/22 at 0557 by Luz Rai RN O2 SAT 96 % , PT TRYING TO REMOVE OXIMIZER - RE DISCUSS TO HIM THE IMPORTANCE OF OXYGENATION TXT . CONFUSE .
[2022-05-09] MEDS ORDERED: PANTOPRAZOLE 40 MG INJ VIAL IVP SCH (21:25)
--- NOTE | 2022-05-09 22:30 | NUR ---
COLACE GIVEN , BUT PT SPILLED OUT THE 1 GEL CAP COLACE , OTHER SCHED .ORAL MEDS REFUSED .- WILL ENDORSED .
--- NOTE | 2022-05-09 23:30 | NUR ---
OTTONIELUSE . O2 SAT 95 % - PT HAS SMALL FREQ PEE . - SOFT ABD. NON DISTENDED BLADDER . - WILL REFER TO DR. WEBER Addendum: 05/10/22 at 0555 by Luz Rai RN PER DR. WEBER JUST CONT. TO MONITOR , HE WILL RE ASSESS THE PT GREG Oliveira
[2022-05-10] VITALS: BP 122/76
--- NOTE | 2022-05-10 | NUR ---
ASKING CHARGE NURSE IF THE PT MAY HAVE SITTER .
--- NOTE | 2022-05-10 01:11 | NUR ---
STILL SHOWING AGITATION , TRY TO GET UP FROM THE BED , O2 SAT 96% , RR 20 , BGP 120/66 - WILL MEDICATE
[2022-05-10] MEDS: LORazepam 2 MG/ML VIAL IVP PRN (01:15)
--- NOTE | 2022-05-10 02:05 | NUR ---
PATIENT WAS SATING 94% ON 13L. PT AGITATED AND TRYING TO GET OUT OF BED. PT WAS SPEAKING TO SON (SON WAS NOT AT BEDSIDE) IF SOON WAS IN THE ROOM. PT APPEARS TO BE HALLUCINATING. ASKED PT TO RELAX AND LAY BACK DOWN THAT HIS FAMILY WOULD BE HERE TOMORROW. SITTER IS AT BEDSIDE. SITTER IS AWARE TO KEEP OXYMIZER AND PULSE OX ON PT.
[2022-05-10 04:00] VITALS: BP 111/60
--- NOTE | 2022-05-10 05:30 | NUR ---
STILL W/ LABILE CONFUSSION , HE SAID I WILL GO HOME THEN I 'LL COME BACK , RE ORIETATION AND OTHER MEASURES ALREADY INITIATED TO CALM DOWN THE PT . PT . IS NON COMPLIANT TO INHALATION THERAPHY , HE KEEP REMOVING THE NASAL PRONG AND BECOMES DESAT . WHEN W/O OXYGENATION INHALATION , HE TRIED TO KICK ME , AND ODNT LIKE TO FOLLOW THE INSTRUCTION - TENDS COMBATIVE , HE KEEPS TRYING TO GET UP FROM THE BED , TRING TO REMOVE THE IV TUBING . PT IS FALL RISK . RT ALREADY INFORMED EARLIER THEY ALREADY ASSESED THE PT . WILL REFER TO DR. MOREIRA FOR POSSIBLE RESTRAINST NON BEHAVIORAL ORDER . Addendum: 05/10/22 at 0558 by Luz Rai RN AT 0538 - PER DR. GUS ARIAS FOR BOTH SOFT WRIST NON BEHAVIORAL RESTRAINT - WILL CARRY OUT .
[2022-05-10 05:45] LABS: BASOPHILS % (AUTO) 0.3 % (0.0-2.0); EOSINOPHILS # (AUTO) 0.1 K/uL (0-0.4); EOSINOPHILS % (AUTO) 1.2 % (0.0-4.0); HEMATOCRIT 23.6 % (36-52); HEMOGLOBIN 8.2 g/dL (12.0-18.0); LYMPHOCYTES # (AUTO) 0.1 K/uL (2.0-11.5); LYMPHOCYTES % (AUTO) 1.9 % (20.5-51.1); MEAN CORPUSCULAR HEMOGLOBIN 31 pg (27-31); MEAN CORPUSCULAR HGB CONC 35 g/dL (33-37); MONOCYTES # (AUTO) 0.1 K/uL (0.8-1.0); MONOCYTES % (AUTO) 1.2 % (1.7-9.3); NEUTROPHILS # (AUTO) 4.7 K/uL (1.8-7.7); NEUTROPHILS % (AUTO) 95.4 % (42.2-75.2); PLATELET COUNT (AUTO) 239 K/uL (140-450); RED BLOOD CELL COUNT(AUTO) 2.63 MIL/uL (4.20-6.10); RED CELL DISTRIBUTION WIDTH 14.8 % (11.6-13.7); WHITE BLOOD COUNT (AUTO) 4.9 K/uL (4.8-10.8)
[2022-05-10 05:56] LABS: ANION GAP 21.5 (8-16); CARBON DIOXIDE 15.9 mmol/L (21-32); POTASSIUM 4.4 mmol/L (3.5-5.1)
--- NOTE | 2022-05-10 07:30 | NUR ---
ENDORSED - PT - STABLE O2 SAT 95 % - ON CONDOM CATH . STILL FOR URINE COLLECTION FOR URINE CULTURE .
--- NOTE | 2022-05-10 07:30 | NUR ---
RECEIVED PT FROM RN PT YELLING UPON ROUNDING LUNG SOUNDS DIMINSHED AT BASES UPON AUSCULATION WILL REVIEW PLAN OF CARE AND MEDICATIONS AT THIS TIME PT CLOSE TO NURSES STATION AT THIS TIME WILL CONTINUE TO MONITOR AND ASSESS
--- NOTE | 2022-05-10 07:55 | NUR ---
UPON TAKING PT VITAL SIGNS NO YELLING NOTED PT BP 58/32 AND 47/25 ACTIVATED CODE BLUE
--- NOTE | 2022-05-10 08:15 | NUR ---
CODE BLUE INITIATED AT 0756 PT PLACED ON BACK BOARD CHEST COMPRESSIONS STARTED PATENT IV LINE OPEN WITH NORMAL SALINE FLOWING BLOOD GLUCOSE CHECKED 196 FIRST EPINEPHRINE 0803 FAMILY NOTIFIED BICARB 0805 SECOND EPINEPHRINE 0806 PULSE CHECK ASYTOLE CPR CONTINUED EPINEPHRINE 0809 0812 CODE DISCONTUED ASYSTOLE
--- NOTE | 2022-05-10 08:20 | NUR ---
@0756 CODE BLUE CALLED FOR PT. RT ARRIVED CPR WAS STARTED BY RN RT BAGGED PT. MACROECONOMICS PROFESSOR AT BED SIDE AND RT SET UP FOR INTUBATION. PULSE CHECK AT 0806. CPR WAS STARTED AGAIN @0809. @0812 CODE DISCONTINUED ASYSTOLE.
[2022-05-10] MEDS ORDERED: PANTOPRAZOLE 40 MG INJ VIAL IVP SCH (09:00)
--- NOTE | 2022-05-10 09:00 | NUR ---
[facility] CALLED SPOKE WITH NIALL RAMIREZ REFERENCE NUMBER [id number]. [facility] OFFICE CALLEDSPOKE WITH PASQUALE AND SHE WILL HAVE A DEPUTY CALL BACK TO TAKE REPORT
--- NOTE | 2022-05-10 12:00 | NUR ---
DISCHARGE PLANNING FAMILY MEETING AND MORTUARY ARRANGEMENTS DISCUSSION WITH THE FAMILY: PATIENT WAS A 66 YEAR OLD MALE ADMITTED ON 05/09/2022 TO THE [facility]/ED DUE TO METHABOLIC ENCEPHALOGY. PATIENT HAS MEDICAL HISTORY OF RECENT KIDNEY TRANSPLANT ABOUT 6 MOTHS AGO. PATIENT WAS BROUGHT IN BY HIS SON DUE TO PATIENT HAVING RECENT MENTAL STATUS CHANGE, PATIENT IS CONFUSED DIZZY, ANXIOUS AND SHORTNESS OF BREATH. SW MEET WITH PATIENT'S FAMILY PATIENT HAS RECENTLY AT ABOUT 8:12AM PATIENT'S ABDULLAHI ELLER WAS PRESENT AND WILLING TO PROVIDE ALL PATIENT'S INFORMATION, ENTIRE FAMILY WAS THERE PRESENT HOWEVER, PATIENT'S APPOINTED HIS SON ARIE HENSON AND DAUGHTER MONA TO PROVIDE INFORMATION AND ASSIST HER WITH ALL NEEDS FOR PATIENT AT THIS TIME DUE TO HER MEDICAL CONDITIONS THAT ALSO HAS HER LIMITED. SW AGREED TO COORDINATE WITH AND HER CHOSEN FAMILY APPOINTEES ABOUT PATIENT'S STATUS AND SERVICES REQUIRED WITH MORTUARY OF PATIENT'S FAMILY CHOICE. SW DISCUSSED WITH THE FAMILY THE IMPORTANCE OF A PLAN AND TO CHOOSE A HOME THAT WILL BE PICKING UP PATIENT AFTER FAMILY MADE ARRANGEMENTS WITH MORTUARY. MONA, ARIE HENSON AND ORTEGA DISCUSS PROTOCOLS AND FAMILY STATED THAT THEY HAVE MADE THEIR CHOICE AND WILL BE DOING PATIENT'S SERVICES WITH [facility] IN [address] [place] [address]. [facility], [phone] . ORTEGA INFORMED FAMILY THAT THE HOME WILL BE CALL AND ARRANGE TIME FOR THEM TO TETRYL BLENDER OPERATOR PATIENT FROM [facility] TODAY. FAMILY WAS ON AGREEMENTS AND THANKED ORTEGA FOR ALL THE INFORMATION ASSISTANCE AND ADMISSIONS SUPERVISOR THE FAMILY WAS PROVIDED. ORTEGA LEFT THE ROOM AND ENDORSE INFORMATION WITH DENISA GALLAGHER . SW/CM WILL FOLLOW UP NEED. ORTEGA CALL [facility] IN [place] AT . SPOKE TO MAHESH TO FIND OUT AT WHAT TIME PATIENT WILL BE TETRYL BLENDER OPERATOR FROM [facility]; PER FAMILY REQUEST. PER MAHESH PATIENT WILL BE TETRYL BLENDER OPERATOR BETWEEN 2-3 HOURS POSSIBLY ABOUT 3:30PM AND 4:30PM. ORTEGA AGREED AND THANKED HIM FOR THE INFORMATION AND ENDED THE CALL. SW INFORMED THE FAMILY THEY REQUESTED. ORTEGA/CM WILL FOLLOW UP NEEDED.
--- NOTE | 2022-05-10 12:20 | NUR ---
SPOKE WITH RORO WITH THE [facility] AND OK TO RELAEASE BODY PT IS NOT A [facility] CASE
--- NOTE | 2022-05-10 13:21 | NUR ---
CALLED MORTUARY [phone] MORTUARY WILL ACADEMIC COUNSELOR PT IN 2-3 HOURS ALL LINES REMOVED FAMILY REMAINS AT BEDSIDE
--- NOTE | 2022-05-10 17:17 | NUR ---
MORTUARY PICKED UP PATIENT FAMILY LEFT
== END 2022-05-10 17:00 | DRG 871 ==
LOC: MED 03:26 → MTU 06:34 → MMU 08:50 → MTU 09:55
PROVIDERS: ADMIT Family Medicine; ATTEND Family Medicine
PROC: 5A12012 Performance of Cardiac Output, Single, Manual (ICD-10-PCS; principal; 2022-05-10)
DX: A41.9 Sepsis, unspecified organism (principal); G93.41 Metabolic encephalopathy; N17.0 Acute kidney failure with tubular necrosis; N39.0 Urinary tract infection, site not specified; D84.821 Immunodeficiency due to drugs; E87.1 Hypo-osmolality and hyponatremia; Z94.0 Kidney transplant status; Z94.4 Liver transplant status; Z20.822 Contact with and (suspected) exposure to COVID-19; E11.65 Type 2 diabetes mellitus with hyperglycemia; K21.9 Gastro-esophageal reflux disease without esophagitis; N40.0 Benign prostatic hyperplasia without lower urinary tract symptoms; L80 Vitiligo; D64.9 Anemia, unspecified; E83.51 Hypocalcemia; I12.9 Hypertensive chronic kidney disease with stage 1 through stage 4 chronic kidney disease, or unspecified chronic kidney disease; E11.22 Type 2 diabetes mellitus with diabetic chronic kidney disease; N18.31 Chronic kidney disease, stage 3a; Z85.05 Personal history of malignant neoplasm of liver; Z79.60 Long term (current) use of unspecified immunomodulators and immunosuppressants; I46.9 Cardiac arrest, cause unspecified
CPT/HCPCS: 36415; 70450; 71045; 80048; 80053; 80305; 81001; 82140; 82948; 83605; 83735; 85025; 87040; 92950; 97112; 97116; C9113; G0480; G0482; J0696; J2060; J3475; J7060; J7507; J7517; Q0092